=== PATIENT | female | born 1955 | race Caucasian/White ===

== ENCOUNTER 2019-07-21 12:43 | Emergency (ER) | payer SELFPAY ==
--- NOTE | 2019-07-21 12:46 | ED.FEMALEGU ---
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 Patient reports a four-day history of worsening vaginal irritation, reports using intravaginal Monistat without any improvement in her symptoms. She has had white vaginal discharge, patient reports there is some itching in that area as well. Patient has history of vaginitis in the past. Patient reports she is sexually active with one partner, no history of sexual transmitted infections. No vaginal bleeding. Mild dysuria, no hematuria. No fever, chills, nausea, vomiting or diarrhea. Related Data Allergies Allergy/AdvReac Type Severity Reaction Status Date / Time No Known Allergies Allergy Verified 07/21/19 12:50 Review of Systems Review of Systems: Narrative: CONSTITUTIONAL: Denies fever CARDIOVASCULAR: Denies chest pain RESPIRATORY: Denies cough or dyspnea. GASTROINTESTINAL: Denies abdominal pain : Reports vaginal discharge, itching SKIN: Denies rash MUSCULOSKELETAL: Denies back pain NEUROLOGIC: Denies headache PMF Past Medical History Medical History (Updated 07/21/19 @ 13:05 by Rayne Rae MD) Diabetes Fibroid Hypertension Surgical History Surgical History (Updated 07/21/19 @ 12:59 by Rayne Rae MD) H/O tubal ligation H/O: hysterectomy History of tonsillectomy Family History Family History (Updated 06/11/18 @ 10:51 by DOCTOR UNKNOWN) Sibling Patient's brother is in good health Father Family history of emphysema Social History Social History Smoking status: Never smoker Alcohol intake: never Exam Narrative: Exam Narrative: GENERAL: Awake, alert, conversant HEAD: Normocephalic, atraumatic. EYES: PERRLA and EOMI. ENT: Nares clear, no rhinorrhea or epistaxis. Mucous membranes moist. NECK: Supple. CHEST: No respiratory distress, breathing even and non labored HEART: Regular rate, sinus rhythm ABDOMEN:Non distended, non tender : Vaginal introitus is erythematous, white cottage cheeselike discharge, there is external lesions that appear yeastlike with cottage cheese discharge as well, no abscess, labia are mildly edematous, no excoriation EXTREMITIES: Normal range of motion. No edema. SKIN: Warm, dry, no rash. NEURO:No focal deficits. Alert and oriented x3 Course Vital Signs Vital signs: Vital Signs Temperature 36.8 C 07/21/19 12:47 Pulse Rate 99 07/21/19 12:47 Respiratory Rate 15 07/21/19 12:47 Blood Pressure 168/101 H 07/21/19 12:47 Pulse Oximetry 98 07/21/19 12:47 Temperature 36.8 C 07/21/19 12:47 Pulse Rate 99 07/21/19 12:47 Respiratory Rate 15 07/21/19 12:47 Blood Pressure 168/101 H 07/21/19 12:47 Pulse Oximetry 98 07/21/19 12:47 MDM - Female Genitourinary MDM Narrative Medical decision making narrative: Patient presented for evaluation of vaginal irritation. No UTI. On exam, clinical symptoms are most consistent with vulvovaginal candidiasis. Patient will require some systemic antifungal, spoke with on-call BRICK PAVING CHECKER Dr. Yuliana Aguila who recommended Terazol 3 as well as Lotrisone ointment. No sign of abscess, systemic cellulitis, Paco's gangrene. Likely, patient's diabetes is contributing to this. He will follow her up in office. Differential Diagnosis Differential diagnosis: Likely urinary tract infection, bacterial vaginosis, cervicitis, vaginitis and cystitis Medical Records Attestation: I reviewed the patient's medical records. Lab Data Labs: Lab Results 07/21/19 07/21/19 07/21/19 Range/Units 13:11 13:13 13:15 Urine Color Colorless (Yellow) Urine Appearance Clear (Clear) Urine pH 6.0 (5.0-9.0) Ur Specific
[2019-07-21 12:47] VITALS: BP 168/101; PULSE 99; RESP 15; TEMP 36.8; O2SAT 98
[2019-07-21 13:26] LABS: Add Urine Microscopic? YES; Appearance Urine Clear (Clear); Bacteria Urine Trace /hpf; Bilirubin Urine Negative (Negative); Color Urine Colorless (Yellow); Glucose Urine UA 3+ mg/dL (Negative); Ketones Urine Negative (Negative); Leukocyte Esterase Ur 1+ LEU/UL (Negative); Nitrate Urine Negative (Negative); Protein Urine Negative (Negative); RBC Urine 0-2 /hpf (0-2); Specific Grav Ur 1.029 (1.001-1.035); Squamous Epithelial Cell Urine Occasional /hpf (Few); Urobilinogen Urine Negative mg/dL (<2.0)
[2019-07-21 13:34] LABS: Blood Urine Negative (Negative)
[2019-07-21 14:22] VITALS: BP 134/82; PULSE 97; RESP 20; O2SAT 97
== END 2019-07-21 14:25 | disposition home or self-care (01) ==
PROVIDERS: Emergency Provider Emergency Medicine; PCP Internal Medicine
DX: B37.3 Candidiasis of vulva and vagina (principal); E11.9 Type 2 diabetes mellitus without complications; I10 Essential (primary) hypertension
CPT/HCPCS: 81001; 87070; 87077; 87086; 87088; 87491; 87591; 87808; 99284

== ENCOUNTER 2019-08-04 12:28 | Observation (INO) | payer SELFPAY ==
[2019-08-04] VITALS (17 sets, daily range): BP systolic 117–165; BP diastolic 80–112; PULSE 78–117; RESP 14–24; TEMP 36.6–36.9; O2SAT 97–99; BMI 22.8
[2019-08-04 12:37] LABS: Glucose Point of Care > 500 (65-105)
[2019-08-04 12:37] LABS: Glucose Point of Care > 500 (65-105)
[2019-08-04 13:15] LABS: Basophils Percent Auto 0.4 % (0.2-1.2); Eosinophils Percent Auto 0.2 % (0-4.4); Hematocrit 41.1 % (37.0-47.0); Hemoglobin 13.4 g/dL (12.0-15.0); Immature Granulocyte Absolute 0.04 K/mm3 (0.00-0.031); Immature Granulocyte Percent A 0.4 % (0-0.5); Lymphocytes Percent Auto 15.1 % (18.3-44.2); Mean Corpuscular HGB Conc 32.6 g/dl (32-36); Mean Corpuscular Hemoglobin 30.4 pg (26-34); Mean Corpuscular Volume 93.2 fl (80-100); Mean Platelet Volume 10.3 fl (7.4-10.4); Monocytes Absolute Auto 0.6 K/mm3 (0.1-0.6); Monocytes Percent Auto 5.4 % (2.6-8.5); Neutrophils Absolute Auto 8.3 K/mm3 (1.3-6.7); Neutrophils Percent Auto 78.5 % (45.5-73.1); Platelet Count Result 397 k/mm3 (150-375); Red Blood Count 4.41 M/mm3 (4.2-5.4); Red Cell Distribution Width 12.8 % (11.5-14.5); White Blood Count 10.6 K/mm3 (4.5-10.0)
[2019-08-04 13:18] LABS: Add Urine Microscopic? YES; Appearance Urine Clear (Clear); Bacteria Urine Trace /hpf; Bilirubin Urine Negative (Negative); Blood Urine Negative (Negative); Color Urine Colorless (Yellow); Glucose Urine UA 3+ mg/dL (Negative); Ketones Urine Negative (Negative); Leukocyte Esterase Ur 1+ LEU/UL (Negative); Nitrate Urine Negative (Negative); Protein Urine Negative (Negative); Squamous Epithelial Cell Urine Few /hpf (Few); Urobilinogen Urine Negative mg/dL (<2.0)
[2019-08-04 13:37] LABS: Albumin Level 3.7 g/dL (3.5-5.1); Alkaline Phosphatase 384 U/L (38-126); Aspartate Amino Transferase 27 U/L (14-36); Bilirubin,Total 0.3 mg/dL (0.2-1.3); Blood Urea Nitrogen 21 mg/dL (7-17); Calcium 8.7 mg/dL (8.4-10.2); Carbon Dioxide 18 mmol/L (22-30); Chloride 87 mmol/L (98-107); Estimated CRCL calculation 72 ml/min; Estimated Glomerular Filt Rate > 60; Potassium 4.9 mmol/L (3.4-5.0); Sodium 121 mmol/L (137-145)
[2019-08-04 13:48] LABS: Alanine Aminotransferase 38 U/L (4-35)
[2019-08-04 13:56] LABS: Glucose 915 mg/dL (65-105)
--- NOTE | 2019-08-04 13:58 | ECG_ITS ---
Measurements Intervals [place] Rate: 98 P: -3 MD: 141 QRS: -2 QRSD: 84 T: 45 QT: 345 QTc: 442 Interpretive Statements SINUS RHYTHM DELAYED PRECORDIAL R/S TRANSITION BASELINE ARTIFACT- I, II, III, AVR, AVL, AVF, V1 BORDERLINE ECG Electronically Signed On 08-04-2019 18:59:03 CDT by Slim Tan D.O.
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
[2019-08-04] MEDS: SODIUM CHLORIDE 0.9% IV 1,000 ML 999 ML IV CONT ×2 (14:25→15:32)
[2019-08-04] MEDS: INSULIN HUMAN REGULAR (*BKC) 100 UNITS/ML 6 UNITS IV PUSH (14:47)
--- NOTE | 2019-08-04 15:12 | PC.NURSE ---
called lab to add on blood orders
[2019-08-04 15:31] LABS: Alveolar/Arterial O2 Gradient 19.6 mmHg; Base Excess ABG -3.9 mEq/l (+/-2.0); Device ROOM AIR; Fractional Inspired Oxygen 21 %; HCO3 ABG 19.8 mEq/l (22.0-26.0); Modified Allen's Test Pass; Oxygen Content ABG 19.2 %vol (16.0-22.0); Oxygen Saturation ABG 97.2 % (95.0-100.0); Oxyhemoglobin 96.5 % THb (90.0-100.0); PCO2 ABG 32.1 mmHg (35.0-45.0); PO2 ABG 91.7 mmHg (80.0-100.0); PO2 FiO2 Ratio Arterial Blood 4.37 %; Site Drawn RIGHT RADIAL; Total Hemoglobin 14.1 g/dL (12.0-18.0); pH ABG 7.407 (7.350-7.450)
[2019-08-04 15:31] LABS: Beta-Hydroxybutyrate/Acetoacetate 0.19 mmol/L (0.02-0.27)
[2019-08-04 16:25] LABS: Glucose Point of Care 460 (65-105)
--- NOTE | 2019-08-04 17:52 | ADMGEN ---
This patient, Hailey Raphael, was admitted to IMU Room 204-01. Patient/family oriented to hospital policies and general routines including ID bracelet, bed and alarms, visiting hours, pain management, procedures, bathroom and other care routines, personal items, smoking policy, room service/diet, and visiting hours. Valuables list has been completed. Information on how to activate the Rapid Response Team has been discussed. Patient/Family are encouraged to report perceived risks to care and to ask questions if they do not understand what they are told or what they should do.
[2019-08-04 17:59] LABS: Glucose Point of Care 419 (65-105)
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
[2019-08-04 18:58] LABS: Phosphorus 3.3 mg/dL (2.5-4.5)
[2019-08-04 18:59] LABS: Blood Urea Nitrogen 16 mg/dL (7-17); Calcium 8.6 mg/dL (8.4-10.2); Carbon Dioxide 24 mmol/L (22-30); Chloride 98 mmol/L (98-107); Estimated CRCL calculation 85 ml/min; Estimated Glomerular Filt Rate > 60; Glucose 416 mg/dL (65-105); Potassium 4.1 mmol/L (3.4-5.0); Sodium 130 mmol/L (137-145)
[2019-08-04 19:49] LABS: Thyroid Stimulating Hormone Reflex 0.761 uIU/mL (0.465-4.68)
[2019-08-04 20:23] LABS: Glucose Point of Care > 500 (65-105)
[2019-08-04] MEDS: SODIUM CHLORIDE 0.9% IV 1,000 ML 100 ML IV CONT (22:30)
[2019-08-04] MEDS: INSULIN ASPART (*BKC) 100 UNITS/ML 8 UNITS SUB-Q (22:30)
[2019-08-04 23:44] LABS: Glucose Point of Care 315 (65-105)
[2019-08-05] VITALS (7 sets, daily range): BP systolic 125–135; BP diastolic 74–88; PULSE 76–101; RESP 14–20; TEMP 36.6–36.7; O2SAT 98–100
[2019-08-05 08:14] LABS: Glucose Point of Care 275 (65-105)
[2019-08-05] MEDS: INSULIN ASPART (*BKC) 100 UNITS/ML SUB-Q ×2 (08:37→12:36)
[2019-08-05] MEDS: metFORMIN HCL 500 MG TABLET PO ×2 (08:38→11:20)
[2019-08-05 09:03] LABS: Blood Urea Nitrogen 11 mg/dL (7-17); Calcium 8.1 mg/dL (8.4-10.2); Carbon Dioxide 24 mmol/L (22-30); Chloride 98 mmol/L (98-107); Estimated CRCL calculation 85 ml/min; Estimated Glomerular Filt Rate > 60; Glucose 315 mg/dL (65-105); Sodium 129 mmol/L (137-145)
[2019-08-05] MEDS: glipiZIDE 5 MG TABLET PO (11:21)
[2019-08-05 12:40] LABS: Glucose Point of Care 306 (65-105)
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
[2019-08-09 05:52] LABS: GGT 125 U/L (3-65)
[2019-08-10 09:36] LABS: Reference Lab Test Result >14.0%
== END 2019-08-05 13:50 | disposition home or self-care (01) ==
LOC: ANHED 16:09 → ANHIMU 16:42
PROVIDERS: Physician Assistant; Admitting Provider Internal Medicine; Emergency Provider General Practice; PCP Internal Medicine; Visit Provider Internal Medicine
DX: E11.65 Type 2 diabetes mellitus with hyperglycemia (principal); E86.0 Dehydration; E87.1 Hypo-osmolality and hyponatremia; E87.8 Other disorders of electrolyte and fluid balance, not elsewhere classified; R74.8 Abnormal levels of other serum enzymes; I10 Essential (primary) hypertension; V43.52XA Car driver injured in collision with other type car in traffic accident, initial encounter; Z79.84 Long term (current) use of oral hypoglycemic drugs; Z91.14 Patient's other noncompliance with medication regimen
CPT/HCPCS: 36415; 36600; 80048; 80053; 81001; 82010; 82805; 82948; 82977; 83036; 83605; 83735; 84100; 84443; 85025; 87086; 87088; 93005; 96361; 96374; 99285; A9270; G0378; J1815; J7030

== ENCOUNTER 2019-11-11 09:08 | Outpatient (CLI) | payer MEDICARE, SELFPAY ==
[2019-11-11 09:32] LABS: Hemoglobin A1C 7.4 % (<5.7)
[2019-11-11 09:34] LABS: Alanine Aminotransferase 12 U/L (4-35); Albumin Level 4.1 g/dL (3.5-5.1); Alkaline Phosphatase 101 U/L (38-126); Anion Gap 6 mmol/L (8-16); Aspartate Amino Transferase 15 U/L (14-36); Bilirubin,Total 0.5 mg/dL (0.2-1.3); Blood Urea Nitrogen 14 mg/dL (7-17); Calcium 9.8 mg/dL (8.4-10.2); Carbon Dioxide 29 mmol/L (22-30); Chloride 102 mmol/L (98-107); Cholesterol 210 mg/dL (0-200); Estimated Glomerular Filt Rate > 60; Glucose 233 mg/dL (65-105); HDL Direct 32 mg/dL; Potassium 3.8 mmol/L (3.4-5.0); Sodium 137 mmol/L (137-145); Triglycerides 234 mg/dL (<150)
[2019-11-11 09:45] LABS: LDL Cholesterol Direct 145 mg/dL
== END 2019-11-11 09:09 | disposition home or self-care (01) ==
LOC: ANHLAB 09:09
PROVIDERS: PCP Internal Medicine; Visit Provider Nurse Practitioner
DX: E78.49 Other hyperlipidemia (principal); E11.9 Type 2 diabetes mellitus without complications
CPT/HCPCS: 36415; 80053; 80061; 83036

== ENCOUNTER 2020-03-03 15:00 | Outpatient (RCR) | payer MEDICARE, SELFPAY ==
--- NOTE | 2020-01-20 14:51 | PTOPEVAL ---
PHYSICAL THERAPY EVALUATION AND PLAN OF ARE Thank you for referring Hailey Raphael to [facility].? The patient is scheduled to be seen for therapy? 2x/week for 3 weeks. Please review, sign, date and return this plan of care THEODORE. I agree with and certify that the following plan of care is medically necessary. Referring Physician Date Attending Provider: Aureliano Perdomo, DO Evaluation Cardiovascular History Hx Hypertension Yes Reproductive History Hx Section Yes: x2 Hx Hysterectomy Yes Hx Post Menopausal Yes Diagnosis left upper back pain, shoulder Onset September 2019 Subjective Information Hailey is here today for upper Query Text:As Reported By Patient/ left back pain with left Family shoulder pain. She states that it is not getting better and really just staying the same. Takes pain medication that is helpful when she is on them, but the sharp pain comes back when she is not on them. States that it is a sharp pain that is constant. Self Report Pain Assessment Left Scapula Reported Pain Level 8 Pain Description Sharp,Stabbing Pain Frequency Chronic,Continuous Other Pain Aggravating Factors does not note any aggravating factors Interventions Used Interventions Used By Clinicians Exercise Pain Relief Interventions Used By Medication Patient Cervical and Lumbar ROM Cervical ROM Reason Not Measured WFL/Left,WFL/Right Upper Extremity Range of Motion Scapular/ Shoulder Range of Motion Bilateral Shoulder Flexion - Active 135 Shoulder Abduction - Active 135 Shoulder Medial Rotation - Active L1 Query Text:Reach Behind the Back Shoulder Lateral Rotation - Active T1 Query Text:Reach Behind the Head Upper Extremity Muscle Strength Testing Scapular/Shoulder Bilateral Scapular Retraction - Rhomboid 3- Fair - Scapular Retraction - Middle Trapezius 3- Fair - Scapular Retraction - Lower Trapezius 3- Fair - Shoulder Flexion Strength 4+ Good + Shoulder Abduction Strength 4+ Good + Shoulder Medial Rotation Strength 4- Good - Shoulder Lateral Rotation Strength 4+ Good + Muscle Length Testing Muscle Length Testing Latissmus Dorsi Muscle Length (R) Moderate Tightness,(L) Moderate Tightness Upper Trapezius Muscle Length (R) Moderate Tightness,(L) Moderate Tightness Shoulder Internal Rotators Muscle Length (R) Moderate Tightness,(L) Severe Tightness Pectoralis Major Muscle Length
--- NOTE | 2020-02-10 14:13 | PTOPEVAL ---
PHYSICAL THERAPY PLAN OF CARE AND PROGRESS REPORT Thank you for referring Hailey Raphael to [facility].? The patient is scheduled to be seen for therapy? 2x/week for 3 weeks. Please review, sign, date and return this plan of care THEODORE. I agree with and certify that the following plan of care is medically necessary. Referring Physician Date Attending Provider: Aureliano Perdomo, DO Discharge Diagnosis left upper back pain, shoulder Onset September 2019 Subjective Information Hailey reports that pain levels Query Text:As Reported By Patient/ are about the same as they Family have been. She thinks that she might be able to do more functionally than she used to. States she performs HEP 3x/ wk (prescribed to perform HEP 7x/wk); therefore, I encouraged her to perform HEP at least 5x/wk. Self Report Pain Assessment Left Scapula Reported Pain Level 6 Pain Description Sharp,Stabbing Lowest Pain Intensity 6 Greatest Pain Intensity 7 Pain Score Pain Score 6: Self Report Interventions Used Interventions Used By Clinicians Exercise Pain Relief Interventions Used By Medication Patient Upper Extremity Range of Motion Scapular/ Shoulder Range of Motion Bilateral Shoulder Flexion - Active 145 Shoulder Abduction - Active 145 Shoulder Medial Rotation - Active T10 Query Text:Reach Behind the Back Shoulder Lateral Rotation - Active T1 Query Text:Reach Behind the Head Upper Extremity Muscle Strength Testing Scapular/Shoulder Bilateral Scapular Retraction - Rhomboid 3- Fair - Scapular Retraction - Middle Trapezius 3- Fair - Scapular Retraction - Lower Trapezius 3- Fair - Shoulder Flexion Strength 5 Normal Shoulder Abduction Strength 5 Normal Shoulder Medial Rotation Strength 4+ Good + Shoulder Lateral Rotation Strength 5 Normal Posture Sitting Position Posture Evaluation View Lateral Head/C-Spine Posture Forward Head Thoracic Spine Posture Increased Kyphosis Lumbar Spine Posture Flattened Shoulder Posture (L) Rounded,(R) Rounded,(L) Forward,(R) Forward Scapula Posture (L) Protracted,(R) Protracted Additional Posture Comments After discussion of posture and how to perform appropriate posture and why it is important for shoulder and spine health, Hailey states that she has never had a
--- NOTE | 2020-02-17 13:51 | PCPTNOTE ---
Patient no showed for apt this date. Left voicemail for next scheduled apt.
--- NOTE | 2020-03-03 15:26 | PTOPEVAL ---
PHYSICAL THERAPY DISCHARGE NOTE Thank you for referring Hailey Raphael to [facility].? Please review, sign, date and return this plan of care THEODORE. I agree with and certify that the following plan of care is medically necessary. Referring Physician Date Attending Provider: Aureliano Perdomo, DO Discharge Diagnosis left upper back pain, shoulder Onset September 2019 Subjective Information Hailey reports that pain Query Text:As Reported By Patient/ continues in the left shoulder Family . Reports a 3/10 pain today, which is the lowest pain level she has reported since starting therapy 7 weeks ago. Hailey states that when she has pain symptoms they are sharp and that she can have symptoms when sitting at rest or with activity. Self Report Pain Assessment Left Scapula Reported Pain Level 3 Pain Description Sharp,Stabbing Interventions Used Interventions Used By Clinicians Exercise,Heat,Manual Therapy Techniques Pain Relief Interventions Used By Medication Patient Upper Extremity Range of Motion Scapular/ Shoulder Range of Motion Bilateral Shoulder Flexion - Active 150 Shoulder Abduction - Active 155 Shoulder Medial Rotation - Active T9 Query Text:Reach Behind the Back Shoulder Lateral Rotation - Active 75 Shoulder Lateral Rotation - Active T1 Query Text:Reach Behind the Head Upper Extremity Muscle Strength Testing Scapular/Shoulder Bilateral Scapular Retraction - Rhomboid 3 Fair Scapular Retraction - Middle Trapezius 3 Fair Scapular Retraction - Lower Trapezius 3 Fair Shoulder Flexion Strength 5 Normal Shoulder Abduction Strength 5 Normal Shoulder Medial Rotation Strength 5 Normal Shoulder Lateral Rotation Strength 5 Normal Posture Posture Sitting Position Posture Evaluation View Lateral Head/C-Spine Posture Forward Head Thoracic Spine Posture Increased Kyphosis Lumbar Spine Posture Flattened Shoulder Posture (L) Elevated,(R) Elevated Scapula Posture (L) Protracted,(R) Protracted Palpation tender to palpation on left pectoralis minor, bilateral upper trapezius --overall improved tissue quality throughout bilateral shoulders ; right side is more improved compared to left PT Clinical Summary Hailey is a 64 yo female
== END 2020-03-04 08:59 | disposition home or self-care (01) ==
LOC: ANHPT 15:00
PROVIDERS: PCP Internal Medicine; Visit Provider Internal Medicine
DX: M54.9 Dorsalgia, unspecified (principal)
CPT/HCPCS: 97110; 97140; 97161

== ENCOUNTER 2020-05-26 11:48 | Outpatient (CLI) | payer MEDICARE, SELFPAY ==
[2020-05-26 12:33] LABS: Alanine Aminotransferase 16 U/L (4-35); Alkaline Phosphatase 180 U/L (38-126); Anion Gap 8 mmol/L (8-16); Aspartate Amino Transferase 17 U/L (14-36); Bilirubin,Total 0.3 mg/dL (0.2-1.3); Blood Urea Nitrogen 18 mg/dL (7-17); Calcium 9.4 mg/dL (8.4-10.2); Carbon Dioxide 26 mmol/L (22-30); Chloride 101 mmol/L (98-107); Cholesterol 207 mg/dL (0-200); Estimated Glomerular Filt Rate > 60; Glucose 325 mg/dL (65-105); HDL Direct 27 mg/dL; Sodium 135 mmol/L (137-145); Triglycerides 348 mg/dL (<150)
[2020-05-26 12:44] LABS: LDL Cholesterol Direct 135 mg/dL
[2020-05-26 13:01] LABS: Hemoglobin A1C > 14.0 % (<5.7)
[2020-05-26 13:22] LABS: Vitamin D 25 Hydroxy 21.1 ng/mL
[2020-05-26 13:32] LABS: Creatinine Urine 59.5 mg/dL
[2020-05-26 13:56] LABS: Microalbumin Urine Random < 6.0 mg/L (0-16.7)
[2020-05-26 13:57] LABS: MALB Creatinine Ratio < 10.1 mg/g (0-30)
== END 2020-05-26 11:49 | disposition home or self-care (01) ==
PROVIDERS: PCP Internal Medicine; Visit Provider Nurse Practitioner
DX: E55.9 Vitamin D deficiency, unspecified (principal); E11.9 Type 2 diabetes mellitus without complications; E78.5 Hyperlipidemia, unspecified
CPT/HCPCS: 36415; 80053; 80061; 82043; 82306; 83036

== ENCOUNTER 2020-05-30 09:02 | Outpatient (CLI) | payer MEDICARE, SELFPAY ==
[2020-06-02 23:22] LABS: Mitochondrial (M2) Ab (IgG) <=20.0 U (<=20.0)
== END 2020-05-30 09:03 | disposition home or self-care (01) ==
PROVIDERS: PCP Internal Medicine; Visit Provider Nurse Practitioner
DX: R74.8 Abnormal levels of other serum enzymes (principal)
CPT/HCPCS: 36415; 83520

== ENCOUNTER 2020-08-30 11:26 | Outpatient (CLI) | payer MEDICARE, SELFPAY ==
[2020-08-30 12:08] LABS: Alanine Aminotransferase 18 U/L (4-35); Alkaline Phosphatase 117 U/L (38-126); Anion Gap 11 mmol/L (8-16); Aspartate Amino Transferase 18 U/L (14-36); Bilirubin,Total 0.4 mg/dL (0.2-1.3); Blood Urea Nitrogen 15 mg/dL (7-17); Calcium 10.1 mg/dL (8.4-10.2); Carbon Dioxide 24 mmol/L (22-30); Chloride 102 mmol/L (98-107); Estimated Glomerular Filt Rate > 60; Glucose 246 mg/dL (65-105); Potassium 3.9 mmol/L (3.4-5.0); Sodium 137 mmol/L (137-145)
[2020-08-30 12:10] LABS: Hemoglobin A1C 8.4 % (<5.7)
== END 2020-08-30 11:27 | disposition home or self-care (01) ==
LOC: ANHLAB 11:28
PROVIDERS: PCP Internal Medicine; Visit Provider Internal Medicine
DX: E11.9 Type 2 diabetes mellitus without complications (principal)
CPT/HCPCS: 36415; 80053; 83036

== ENCOUNTER 2021-01-19 10:12 | Outpatient (CLI) | payer MEDICARE, SELFPAY ==
[2021-01-19 11:36] LABS: Alanine Aminotransferase 20 U/L (4-35); Albumin Level 4.1 g/dL (3.5-5.1); Alkaline Phosphatase 167 U/L (38-126); Anion Gap 11 mmol/L (8-16); Aspartate Amino Transferase 25 U/L (14-36); Bilirubin,Total 0.6 mg/dL (0.2-1.3); Blood Urea Nitrogen 11 mg/dL (7-17); Calcium 9.2 mg/dL (8.4-10.2); Carbon Dioxide 21 mmol/L (22-30); Chloride 100 mmol/L (98-107); Cholesterol 265 mg/dL (0-200); Estimated Glomerular Filt Rate > 60; Glucose 331 mg/dL (65-110); HDL Direct 21 mg/dL; Potassium 4.4 mmol/L (3.4-5.0); Sodium 132 mmol/L (137-145); Triglycerides 275 mg/dL (<150)
[2021-01-19 11:47] LABS: LDL Cholesterol Direct 198 mg/dL
[2021-01-19 11:48] LABS: Hemoglobin A1C > 14.0 % (<5.7)
[2021-01-19 11:57] LABS: Creatinine Urine 79.4 mg/dL
[2021-01-19 12:01] LABS: MALB Creatinine Ratio 11.1 mg/g (0-30); Microalbumin Urine Random 8.8 mg/L (0-16.7)
[2021-01-19 16:42] LABS: Vitamin D 25 Hydroxy 25.1 ng/mL
== END 2021-01-19 10:13 | disposition home or self-care (01) ==
LOC: ANHLAB 10:17
PROVIDERS: PCP Internal Medicine; Visit Provider Internal Medicine
DX: E11.9 Type 2 diabetes mellitus without complications (principal); I10 Essential (primary) hypertension; E78.5 Hyperlipidemia, unspecified; E55.9 Vitamin D deficiency, unspecified
CPT/HCPCS: 36415; 80053; 80061; 82043; 82306; 83036

== ENCOUNTER 2021-08-12 08:39 | Emergency (ER) | payer OTHER, MEDICARE, SELFPAY ==
--- NOTE | ~2021-08-12 | CT_ITS ---
EXAMINATION: CT lumbar spine wo con DATE: 08/12/2021 10:11 INDICATION: Low back pain TECHNIQUE: Computed tomography (CT) of the lumbar spine was performed without intravenous contrast. T he dose-length product (DLP) was 281.08 mGy-cm. Iterative reconstruction was used. COMPARISON: None FINDINGS: There is no fracture, dislocation, or subluxation. There is moderate loss of intervertebral disc space height at L2-3, L3-4, and L4-5. The vertebral body heights are maintained. Small degenera tive osteophytes project from the anterior endplates of multiple vertebral bodies. There is mild face t osteoarthritis. IMPRESSION: 1. Moderate lumbar spondylosis without acute findings. Reviewed, dictated and finalized at location A.
[2021-08-12 08:43] VITALS: BP 149/89; PULSE 89; RESP 14; TEMP 36.5; O2SAT 99
--- NOTE | 2021-08-12 08:56 | ED.BACK ---
HPI - Back Pain/Injury General Chief Complaint: Back Pain/Injury <Tiffany Tejeda PA-C - Last Filed: 08/12/21 17:16> Stated Complaint: back injury <IMER Humphrey Last Filed: 08/12/21 17:16> Time Seen by Provider: 08/12/21 08:55 <IMER Humphrey Last Filed: 08/12/21 17:16> Source: patient <IMER Humphrey Last Filed: 08/12/21 17:16> Mode of arrival: ambulatory <IMER Humphrey Last Filed: 08/12/21 17:16> Limitations: no limitations <IMER Humphrey Last Filed: 08/12/21 17:16> History of Present Illness HPI Narrative: Patient is a 65-year-old female who presents the ED with report of low back pain. 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 In the process of transferring the resident, she strained her low back and fell backwards, hitting it against a wall. She sustained a small abrasion over her lumbar spine. She complains of pain in her low back since then, which has been worsening over the last couple days. She has been taking Tylenol at home without relief. She has not taken anything for pain today. She states, I need an x-ray. Denies any head injury in the fall, LOC. Denies abdominal pain, fever, chills, nausea, vomiting, bowel or bladder incontinence, saddle anesthesia, weakness in her legs. <IMER Humphrey Last Filed: 08/12/21 17:16> Related Data Allergies/Adverse Reactions: Allergies Allergy/AdvReac Type Severity Reaction Status Date / Time No Known Allergies Allergy Verified 08/12/21 08:49 <IMER Humphrey Last Filed: 08/12/21 17:16> Review of Systems Review of Systems: CONSTITUTIONAL: Denies fever, chills. CARDIOVASCULAR: Denies chest pain. RESPIRATORY: Denies dyspnea. GASTROINTESTINAL: Denies abdominal pain, incontinence, nausea, vomiting. GENITOURINARY: Denies dysuria, incontinence,or hematuria. SKIN: Reports abrasion over lumbar spine. MUSCULOSKELETAL: Reports low back pain. Denies neck pain. NEUROLOGIC: Denies HI, LOC, numbness, tingling, or weakness. <Tiffany Tejeda PA-C - Last Filed: 08/12/21 17:16> All systems reviewed & are unremarkable except as noted in HPI and below <Tiffany Tejeda PA-C - Last Filed: 08/12/21 17:16> [facility] Past Medical History Medical History: Medical History (Updated 08/12/21 @ 09:21 by Tiffany Tejeda PA-C) Essential hypertension Gastroesophageal reflux disease Hemorrhoids Type 2 diabetes mellitus <Tiffany Tejeda PA-C - Last Filed: 08/12/21 17:16> Surgical History Surgical History: Surgical History History of tonsillectomy History of total hysterectomy History of tubal ligation <Tiffany Tejeda PA-C - Last Filed: 08/12/21 17:16> Family History Family History: Family History Sibling Patient's brother is in good health Father Family history of emphysema Mother Hypertension <Tiffany Tejeda PA-C - Last Filed: 08/12/21 17:16> Social History Social History: Social History Social History: The patient lives in [place], [place]. 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 She designates her daughter, Lizzy Carvajal, as her surrogate decision maker and she wishes to be a full code. Smoking status: Never smoker Second hand tobacco smoke exposure: No Alcohol intake: never Sexual Orientation (if Verbalized by the Patient): Straight or Heterosexual Spiritual care concerns: No <Tiffany Tejeda PA-C - Last Filed: 08/12/21 17:16> Exam Narrative: GENERAL: Well appearing, well-nourished, non-toxic, in no acute distress. HEAD: Normocephalic, atraumatic. EYES: PERRL/EOMI, conjunctivae clear bilaterally. NECK: Supple. No adenopathy, no masses. No midline cervica
[2021-08-12] MEDS: KETOROLAC (*BKC) 60 MG/2 ML VIAL IM (09:13)
== END 2021-08-12 10:57 | disposition home or self-care (01) ==
PROVIDERS: Emergency Provider Emergency Medicine; PCP Internal Medicine
DX: S39.012A Strain of muscle, fascia and tendon of lower back, initial encounter (principal); I10 Essential (primary) hypertension; E11.9 Type 2 diabetes mellitus without complications; K21.9 Gastro-esophageal reflux disease without esophagitis; Z79.84 Long term (current) use of oral hypoglycemic drugs; M47.816 Spondylosis without myelopathy or radiculopathy, lumbar region; X50.0XXA Overexertion from strenuous movement or load, initial encounter; Y93.F2 Activity, caregiving, lifting
CPT/HCPCS: 72131; 96372; 99284; J1885

== ENCOUNTER 2021-11-14 10:11 | Emergency (ER) | payer MEDICARE, SELFPAY ==
--- NOTE | 2021-11-14 10:23 | ED.SKABFB ---
HPI - Skin/Abscess/Foreign Bdy General Chief complaint: Skin/Abscess/Foreign Body Stated complaint: rash Source: patient and RN notes reviewed Mode of arrival: ambulatory Limitations: no limitations History of Present Illness HPI narrative: 66-year-old female with a history of diabetes and high cholesterol presents to the [facility] with complaints of a rash. Reports itchy rash to her bilateral feet for a couple of weeks. Has tried putting some type of lotion(Curel) on it without relief Patient is a very poor historian No rash seen on feet. [place] very dry areas noted to the bottom quarter of her legs. Worse on the left medial without signs of cellulitis. Nothing is raised, warm. No fluctuance noted Onset (ago): week(s) (2-3) Related Data Allergies Allergy/AdvReac Type Severity Reaction Status Date / Time No Known Allergies Allergy Verified 11/14/21 10:31 Review of Systems Review of Systems: All systems reviewed & are unremarkable except as noted in HPI and below Constitutional: Constitutional: Reports no additional constitutional complaints, Denies chills and Denies fever(s) Eyes: Eyes: Reports no additional eye complaints ENT: Reports system reviewed and no additional complaints, except as documented Cardiovascular: Cardiovascular: Reports no additional cardiovascular complaints Respiratory: Respiratory: Reports no additional respiratory complaints Gastrointestinal: Gastrointestinal: Reports no additional gastrointestinal complaints Musculoskeletal: Musculoskeletal: Reports no additional musculoskeletal complaints Integumentary/Breasts: Skin/Breast: Reports as per HPI and Reports rash Neurologic: Reports system reviewed and no additional complaints, except as documented Psychiatric: Psychiatric: Reports no additional psychiatric complaints Allergic/Immunologic: Allergic/Immunologic: Reports no additional allergic/immunologic complaints [facility] Past Medical History Medical History (Updated 11/14/21 @ 10:38 by Oriana Willams APRN) Essential hypertension Gastroesophageal reflux disease Hemorrhoids Type 2 diabetes mellitus Surgical History Surgical History History of tonsillectomy History of total hysterectomy History of tubal ligation Family History Family History Sibling Patient's brother is in good health Father Family history of emphysema Mother Hypertension Social History Social History Social History: The patient lives in [place], [place]. 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 She designates her daughter, Lizzy Carvajal, as her surrogate decision maker and she wishes to be a full code. Smoking status: Never smoker Second hand tobacco smoke exposure: No Alcohol intake: never Sexual Orientation (if Verbalized by the Patient): Straight or Heterosexual Spiritual care concerns: No Comments At the time of my signature, I reviewed and agree with the nursing past medical, surgical, social, and family history. There is no relevant family history pertinent to the patient complaint. Exam Const: General: no acute distress, alert, ill appearing chronically and other (unkept) Nutritional Appearance: well nourished Orientation/consciousness: patient oriented x3 Limitations: no limitations Other: Poor historian HENMT: Head: normal to inspection Ears: external ears normal General nose exam: Normal external nose present Eyes: General: appearance normal, both eyes and all related structures Pupils: Equal, round and reactive pupils present Neck: Neck: normal visual inspection, no lymphadenopathy and no meningeal signs Chest: Chest palpation & inspection: normal inspection of the chest Resp: Effort & Inspection: normal respiratory effort and no use of accessory m
[2021-11-14 10:25] VITALS: BP 152/93; PULSE 94; RESP 18; TEMP 36.7; O2SAT 99
== END 2021-11-14 10:48 | disposition home or self-care (01) ==
PROVIDERS: Emergency Provider Nurse Practitioner; PCP Internal Medicine
DX: L50.9 Urticaria, unspecified (principal); I10 Essential (primary) hypertension; K21.9 Gastro-esophageal reflux disease without esophagitis; E11.9 Type 2 diabetes mellitus without complications
CPT/HCPCS: 99213; G0463

== ENCOUNTER 2021-12-11 09:24 | Outpatient (CLI) | payer MEDICARE, SELFPAY ==
[2021-12-11 10:09] LABS: Alanine Aminotransferase 15 U/L (6-35); Albumin Level 3.8 g/dL (3.5-5.1); Alkaline Phosphatase 131 U/L (38-126); Anion Gap 15 mmol/L (8-16); Aspartate Amino Transferase 15 U/L (14-36); Bilirubin,Total 0.6 mg/dL (0.2-1.3); Blood Urea Nitrogen 9 mg/dL (7-17); Calcium 8.8 mg/dL (8.4-10.2); Carbon Dioxide 26 mmol/L (22-30); Chloride 100 mmol/L (98-107); Cholesterol 230 mg/dL (0-200); Estimated Glomerular Filt Rate > 60; Glucose 274 mg/dL (65-110); HDL Direct 28 mg/dL; Potassium 3.8 mmol/L (3.4-5.0); Sodium 141 mmol/L (137-145); Triglycerides 205 mg/dL (<150)
[2021-12-11 10:14] LABS: Creatinine Urine 90.2 mg/dL
[2021-12-11 10:19] LABS: LDL Cholesterol Direct 169 mg/dL
[2021-12-11 10:55] LABS: Vitamin D 25 Hydroxy 15.8 ng/mL
[2021-12-11 11:27] LABS: Hemoglobin A1C > 14.0 % (<5.7)
== END 2021-12-11 09:25 | disposition home or self-care (01) ==
LOC: ANHLAB 09:26
PROVIDERS: PCP Internal Medicine; Visit Provider Internal Medicine
DX: E55.9 Vitamin D deficiency, unspecified (principal); E78.5 Hyperlipidemia, unspecified; I10 Essential (primary) hypertension; E11.65 Type 2 diabetes mellitus with hyperglycemia
CPT/HCPCS: 36415; 80053; 80061; 82043; 82306; 83036

== ENCOUNTER 2022-01-01 06:49 | Emergency (ER) | payer MEDICARE, SELFPAY ==
--- NOTE | ~2022-01-01 | XR_ITS ---
EXAMINATION: XR hip RT 2V w AP pelvis DATE: 01/01/2022 07:29 INDICATION: Right hip pain. Fall. TECHNIQUE: An anteroposterior view of the pelvis and 2 views of right hip were obtained. COMPARISON: None. FINDINGS: There is lumbar dextrocurvature and severe spondylosis. No fracture. There is mild osteoart hritis of the hips. IMPRESSION: 1. Mild osteoarthritis of the hips. Reviewed, dictated and finalized at location A. 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
[2022-01-01 07:14] VITALS: BP 148/96; PULSE 86; RESP 16; TEMP 36.8; O2SAT 99
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
== END 2022-01-01 08:35 | disposition home or self-care (01) ==
PROVIDERS: Emergency Provider Emergency Medicine; PCP Internal Medicine
DX: S70.01XA Contusion of right hip, initial encounter (principal); I10 Essential (primary) hypertension; E11.9 Type 2 diabetes mellitus without complications; K21.9 Gastro-esophageal reflux disease without esophagitis; Z90.710 Acquired absence of both cervix and uterus; M16.0 Bilateral primary osteoarthritis of hip; Z79.84 Long term (current) use of oral hypoglycemic drugs; W03.XXXA Other fall on same level due to collision with another person, initial encounter
CPT/HCPCS: 73502; 99283

== ENCOUNTER 2022-01-02 12:16 | Observation (INO) | payer OTHER, MEDICARE, SELFPAY ==
--- NOTE | ~2022-01-02 | XR_ITS ---
EXAMINATION: XR chest 1V portable INDICATION: Back pain TECHNIQUE: Portable AP chest at 1843 hours COMPARISON: 05/14/2016 FINDINGS: The lungs are free of acute opacities. No pleural effusion or pneumothorax. The cardiomedia stinal silhouette is normal. There is a chronic nodule of the right midlung zone. IMPRESSION: 1. No acute cardiopulmonary abnormality. Reviewed, dictated and finalized at location F. IGERATING TECHNICIAN
--- NOTE | ~2022-01-02 | CT_ITS ---
EXAMINATION: CT pelvis wo con DATE: 01/02/2022 17:43 INDICATION: Right hip and low back pain TECHNIQUE: Computed tomography (CT) of the pelvis was performed without intravenous contrast. The dos e-length product (DLP) was 219.29 mGy-cm. Automated exposure control and iterative reconstruction santos hnique were employed. COMPARISON: None FINDINGS: There is an acute, traumatic, closed, nondisplaced fracture involving the greater trochante r of the right femur. No additional fracture is identified. The femoral heads are well-seated in thei r acetabula. There is severe lumbar spondylosis. IMPRESSION: 1. Acute, nondisplaced fracture of the greater trochanter of the right femur. Reviewed, dictated and finalized at location F. SE COOK
[2022-01-02 12:37] VITALS: BP 135/83; PULSE 107; RESP 18; TEMP 36.4; O2SAT 99
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
--- NOTE | 2022-01-02 18:31 | ECG_ITS ---
Measurements Intervals [place] Rate: 92 P: -7 OR: 142 QRS: -16 QRSD: 85 T: 9 QT: 369 QTc: 459 Interpretive Statements SINUS RHYTHM DELAYED PRECORDIAL R/S TRANSITION BORDERLINE T WAVE ABNORMALITY- INFERIOR LEADS BASELINE ARTIFACT- I, II, III, AVR, AVL, AVF, V1 BORDERLINE ECG COMPARED TO ECG 08/04/2019 15:27:40 NO SIGNIFICANT CHANGES Electronically Signed On 01-02-2022 20:00:40 CERTIFIED TOWER CLIMBER by Slim Tan D.O.
[2022-01-02 18:44] LABS: Basophils Percent Auto 0.3 % (0.2-1.2); Eosinophils Percent Auto 0.2 % (0-4.4); Hemoglobin 13.7 g/dL (12.0-15.0); Immature Granulocyte Absolute 0.02 K/mm3 (0.00-0.031); Immature Granulocyte Percent A 0.2 % (0-0.5); Lymphocytes Absolute Auto 2.75 K/mm3 (0.9-3.2); Lymphocytes Percent Auto 30.4 % (18.3-44.2); Mean Corpuscular HGB Conc 34.3 g/dl (32-36); Mean Corpuscular Hemoglobin 29.9 pg (26-34); Mean Corpuscular Volume 87.3 fl (80-100); Mean Platelet Volume 9.6 fl (7.4-10.4); Monocytes Absolute Auto 0.8 K/mm3 (0.1-0.6); Monocytes Percent Auto 9.2 % (2.6-8.5); Neutrophils Absolute Auto 5.4 K/mm3 (1.3-6.7); Neutrophils Percent Auto 59.7 % (45.5-73.1); Platelet Count Result 314 k/mm3 (150-375); Red Blood Count 4.58 M/mm3 (4.2-5.4); Red Cell Distribution Width 12.6 % (11.5-14.5); White Blood Count 9.1 K/mm3 (4.5-10.0)
[2022-01-02 18:54] LABS: Alanine Aminotransferase 14 U/L (6-35); Albumin Level 3.8 g/dL (3.5-5.1); Alkaline Phosphatase 128 U/L (38-126); Anion Gap 13 mmol/L (8-16); Aspartate Amino Transferase 16 U/L (14-36); Bilirubin,Total 0.6 mg/dL (0.2-1.3); Blood Urea Nitrogen 17 mg/dL (7-17); Calcium 8.6 mg/dL (8.4-10.2); Carbon Dioxide 24 mmol/L (22-30); Chloride 99 mmol/L (98-107); Estimated CRCL calculation 70 ml/min; Estimated Glomerular Filt Rate > 60; Glucose 254 mg/dL (65-110); Potassium 3.7 mmol/L (3.4-5.0); Sodium 136 mmol/L (137-145)
[2022-01-02 18:56] LABS: INR 1.1; Prothrombin Time 13.7 Seconds (11.1-14.7)
[2022-01-02 18:58] LABS: Partial Thromboplastin Time 29.6 SECONDS (22.3-36.8)
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
[2022-01-02 19:55] VITALS: BP 150/94; PULSE 89; RESP 18; O2SAT 95
[2022-01-02 19:58] LABS: Influenza A QL RT-PCR Negative (Negative); Influenza B QL RT-PCR Negative (Negative); SARS-CoV-2 RNA PCR Negative
[2022-01-02 20:18] LABS: CRP 5.9 mg/dL (<1.0)
--- NOTE | 2022-01-02 20:28 | PC.NURSE ---
2025-CALLED REPORT TO NIMISHA ON [facility]
[2022-01-02 20:42] VITALS: BMI 23.1
[2022-01-02 20:45] VITALS: BP 149/93; PULSE 88; RESP 16; TEMP 36.7; O2SAT 98
--- NOTE | 2022-01-02 22:44 | PC.NURSE ---
Patient arrived on 3 Med-Surg unit at 20:45 on 01/02/2022
[2022-01-02 22:45] VITALS: BMI 23.3
[2022-01-02 23:22] LABS: Glucose Point of Care 201 mg/dl (65-105)
[2022-01-03] VITALS: PULSE 88
[2022-01-03] MEDS: SODIUM CHLORIDE 0.9% IV 1,000 ML 100 ML IV CONT ×3 (01:32→22:35)
[2022-01-03] MEDS: MORPHINE SULFATE (*CRX) 2 MG/ML INJ IV PUSH (03:48)
[2022-01-03 04:00] VITALS: PULSE 81
[2022-01-03 06:00] VITALS: BP 143/77; PULSE 87; RESP 16; TEMP 36.2; O2SAT 97
[2022-01-03 06:11] LABS: Basophils Percent Auto 0.5 % (0.2-1.2); Eosinophils Percent Auto 0.6 % (0-4.4); Hematocrit 39.5 % (37.0-47.0); Immature Granulocyte Absolute 0.01 K/mm3 (0.00-0.031); Immature Granulocyte Percent A 0.2 % (0-0.5); Lymphocytes Percent Auto 31.9 % (18.3-44.2); Mean Corpuscular HGB Conc 32.9 g/dl (32-36); Mean Corpuscular Hemoglobin 30.2 pg (26-34); Mean Corpuscular Volume 91.6 fl (80-100); Mean Platelet Volume 10.1 fl (7.4-10.4); Monocytes Absolute Auto 0.7 K/mm3 (0.1-0.6); Monocytes Percent Auto 10.2 % (2.6-8.5); Neutrophils Absolute Auto 3.7 K/mm3 (1.3-6.7); Neutrophils Percent Auto 56.6 % (45.5-73.1); Platelet Count Result 271 k/mm3 (150-375); Red Blood Count 4.31 M/mm3 (4.2-5.4); Red Cell Distribution Width 12.6 % (11.5-14.5); White Blood Count 6.6 K/mm3 (4.5-10.0)
[2022-01-03 06:23] LABS: Alanine Aminotransferase 12 U/L (6-35); Albumin Level 3.3 g/dL (3.5-5.1); Alkaline Phosphatase 101 U/L (38-126); Anion Gap 11 mmol/L (8-16); Aspartate Amino Transferase 17 U/L (14-36); Bilirubin,Total 0.9 mg/dL (0.2-1.3); Blood Urea Nitrogen 14 mg/dL (7-17); Carbon Dioxide 24 mmol/L (22-30); Chloride 101 mmol/L (98-107); Estimated CRCL calculation 70 ml/min; Estimated Glomerular Filt Rate > 60; Glucose 190 mg/dL (65-110); Potassium 3.4 mmol/L (3.4-5.0); Sodium 136 mmol/L (137-145)
--- NOTE | 2022-01-03 07:16 | PCOTNOTE ---
Needs ortho consult/WB status prior to completing OT evaluation.
[2022-01-03 07:54] LABS: Glucose Point of Care 195 mg/dl (65-105)
[2022-01-03] MEDS: FAMOTIDINE 20 MG TABLET PO ×2 (08:32→22:34)
--- NOTE | 2022-01-03 09:15 | PCPTNOTE ---
Needs ortho consult/WB status prior to completing PT evaluation.
--- NOTE | 2022-01-03 11:13 | PCOTNOTE ---
Needs ortho consult/WB status prior to completing OT evaluation. Following.
[2022-01-03 11:35] LABS: Glucose Point of Care 311 mg/dl (65-105)
[2022-01-03] MEDS: INSULIN ASPART (*BKC) 100 UNITS/ML SUB-Q (11:38)
--- NOTE | 2022-01-03 13:52 | PM.IMPN ---
Progress Note: A&P Assessment and Plan (1) Right hip pain: Code(s): M25.551 - Pain in right hip Status: Acute Assessment and Plan: plan is to orthopedic surgeon see the patient. Pain control. DVT prophylaxis (2) Uncontrolled diabetes mellitus: Code(s): E11.65 - Type 2 diabetes mellitus with hyperglycemia Status: Acute Assessment and Plan: = HBA1c ( goal <7.0%) , Renal functions, Liver panel every 3 months Monitor vitamin B12 levels Optimize ERICK-inhibitor and statin Routine glucose monitoring. Watch for Hypoglycemia. BMI goal < 25 will hold glipizide right now continue patient may going. Exercise, Diet ( low salt- low carb) Weight loss (3) Essential (primary) hypertension: Code(s): I10 - Essential (primary) hypertension Status: Acute Assessment and Plan: Keep systolic pressure less than 130/70 diet exercise weight loss salt restriction. (4) Hyperlipidemia, unspecified: Qualifiers: Hyperlipidemia type: unspecified Qualified Code(s): E78.5 - Hyperlipidemia, unspecified Code(s): E78.5 - Hyperlipidemia, unspecified Status: Acute (5) CARRILLO (nonalcoholic steatohepatitis): Code(s): K75.81 - Nonalcoholic steatohepatitis (CARRILLO) Status: Acute Assessment and Plan: patient continue metformin. Diet exercise weight loss Plan DVT prophylaxis. GI prophylaxis. All records reviewed Discussed plan of care with the nursing staff and with the patient in detail. Answered all questions and concerns from the patient. All labs have been reviewed. Code status updated dictation may have been done utilizing a voice recognition system. Attempts have been made to correct errors. However, there may be uncorrected grammatical, spelling, and recognition errors present. Time Spent With Patient Time with patient: 25 - 35 minutes Subjective Date/time seen: 01/03/22 13:52 Interval history: Patient no complaints chest Review of Systems Review of Systems: All systems reviewed & are unremarkable except as noted in HPI and below Exam Narrative: GENERAL: Well appearing, well-nourished, non-toxic, in no acute distress. HEAD: Normocephalic, atraumatic. NECK: Supple. No adenopathy, no masses. RESPIRATORY: Airway patent, respirations nonlabored. Clear to auscultation bilaterally, no rales, rhonchi, wheezing. CARDIOVASCULAR: Regular rate and rhythm without murmurs, rubs, or gallops. Peripheral pulses 2+ and equal bilaterally. ABDOMINAL: Soft, nontender, nondistended, no hepatosplenomegaly. Normoactive BS. MUSCULOSKELETAL: no Epigastric and no hypochondrial tenderness SKIN: Warm, dry, normal color. No rashes. NEURO: A&O X3. Moves all extremities PSYCHIATRIC: Appropriate mood and affect. Normal interaction. Objective Data Vital Signs Vital Signs: Vital Signs - 24 hr 01/02/22 19:55 01/02/22 20:45 01/03/22 01:15 Temperature 36.7 C Pulse Rate 89 88 Respiratory Rate 18 16 Blood Pressure 150/94 H 149/93 H Pulse Oximetry 95 98 Oxygen Delivery Room Air 01/03/22 00:00 01/03/22 04:00 01/03/22 06:00 Temperature 36.2 C L Pulse Rate 88 81 87 Respiratory Rate 16 Blood Pressure 143/77 H Pulse Oximetry 97 Oxygen Delivery 01/03/22 08:25 Temperature Pulse Rate Respiratory Rate Blood Pressure Pulse Oximetry Oxygen Delivery Room Air Intake/Output Intake/Output: Intake & Output 12/31/21 01/01/22 01/02/22 01/03/22 23:59 23:59 23:59 23:59 Intake Total 1340 Output Total 550 Balance 790 Meds/Results Medications: Active Medications Generic Name Dose Route Start Last Admin Trade Name Freq PRN Reason Stop Dose Admin Acetaminophen 650 mg 01/02/22 19:32 Acetaminophen 325 Mg Tablet PO Q4H PRN Mild Pain (1-3) or Fever Hydrocodone Bitart/Acetaminophen 1 tab 01/02/22 19:30 Hydrocodone/Acetaminophen (*Crx) 5-325 Mg Tablet PO Q6H PRN Pain
[2022-01-03 14:00] VITALS: BP 129/80; PULSE 86; RESP 16; TEMP 36.6; O2SAT 98
[2022-01-03 16:38] LABS: Glucose Point of Care 127 mg/dl (65-105)
[2022-01-03] MEDS: MUPIROCIN 2% OINT 22 GM TUBE 1 APPLIC TOPICAL (16:49)
[2022-01-03] MEDS: metFORMIN HCL 500 MG TABLET 1000 MG PO (16:49)
--- NOTE | 2022-01-03 17:21 | PM.CNOR ---
Assessment and Plan Assessment and plan (1) Fracture of greater trochanter of right femur: Qualifiers: Encounter type: initial encounter Fracture type: closed Fracture alignment: nondisplaced Qualified Code(s): S72.114A - Nondisplaced fracture of greater trochanter of right femur, initial encounter for closed fracture Code(s): S72.111A - Displaced fracture of greater trochanter of right femur, initial encounter for closed fracture Status: Acute Assessment and Plan: LIBBY IS HERE FOR EVALUATION OF HER RIGHT HIP PAIN FOLLOWING A FALL. SHE HAS A NON DISPLACED GREATER TROCHANTERIC FRACTURE AND IS COMFORTABLE AT THIS POINT. SHE HAS PAIN WITH AMBULATION. RECOMMEND PT AND WBAT. SHE WILL CONTINUE WITH THE WALKER UNTIL SHE IS COMFORTABLE. SHE MAY TAKE 6 TO 8 WEEKS FOR FRACTURE HEALING. SHE WILL REQUIRE PT AND POSSIBLY SLI;;ED NURSING PLACEMENT SINCE SHE LIVES ON HER OWN. SHE WILL F/U IN THE OFFICE IN 6 WEEKS. History of Present Illness HPI Consult date: 01/03/22 Chief complaint: Fracture of Rt Greater Trochanter,Pain w/ambulatio Narrative: LIBBY IS HERE FOR RIGHT HIP EVALUATION AFTER A FALL YESTERDAY. SHE C/O RIGHT HIP PAIN. SHE DENIES ANY LEFT HIP PAIN OR [place] OTHER EXTREMITY OR NECK OR BACK PAIN. SHE HAS BEEN WALKING BACK AND FORTH TO THE RESTROMM HERE IN THE HOSPITAL AND WEIGHT BEARING TOLERATED. [facility] Past Medical History Medical History (Updated 01/03/22 @ 17:33 by Odell Stuart MD) Essential hypertension Gastroesophageal reflux disease Hemorrhoids Type 2 diabetes mellitus Surgical History Surgical History History of tonsillectomy History of total hysterectomy History of tubal ligation Family History Family History Sibling Patient's brother is in good health Father Family history of emphysema Mother Hypertension Social History Social History Social History: The patient lives in [place], [place]. 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 She designates her daughter, Lizzy Carvajal, as her surrogate decision maker and she wishes to be a full code. Smoking status: Never smoker Second hand tobacco smoke exposure: No Alcohol intake: never Substance use: never Lack of Transportation: No Lack of Food: Never True Current Housing: I Have Housing Concerned About Future Housing: YES Difficulty Paying Gas/Electric Bills: No Difficulty Paying for Meds: No Currently Unemployed: No Education: High School Diploma/GED Difficulty w/ Childcare or Family Care: No Sexual Orientation (if Verbalized by the Patient): Straight or Heterosexual Spiritual care concerns: No Meds Home Medications and Allergies Home Medications Medication Instructions Recorded Confirmed Type polyethylene glycol 3350 17 gram 17 g PO QAM PRN Constipation 30 08/05/19 01/02/22 Rx oral powder packet (Miralax) days omega-3 fatty acids 1,000 mg 1,000 mg PO DAILY #90 caps 05/26/20 01/02/22 Rx capsule (Fish Oil Concentrate) mupirocin 2 % topical ointment 1 applic topical TID #22 grams 11/17/21 01/02/22 Rx atorvastatin 80 mg tablet 80 mg PO .every other day #15 tabs 12/12/21 01/02/22 Rx cholecalciferol (vitamin D3) 50 100 mcg PO DAILY #90 tabs 12/12/21 01/02/22 Rx mcg (2,000 unit) tablet glipizide 5 mg tablet 5 mg PO .COMPLEX #90 tabs 12/12/21 01/02/22 Rx losartan 25 mg tablet 12.5 mg PO DAILY #30 tabs 12/12/21 01/02/22 Rx metformin 1,000 mg tablet 1,000 mg PO BID #180 tabs 12/12/21 01/02/22 Rx naproxen 250 mg tablet 250 mg PO BID PRN pain #10 tabs 01/01/22 01/02/22 Rx Allergies Allergy/AdvReac Type Severity Reaction Status Date / Time No Known Allergies Allergy Verified 01/02/22 22:38 Vital Signs Vital Signs - 24 hr 01/02/22 19:55 01/02/22 20:45 1
[2022-01-03 21:44] VITALS: BP 137/88; PULSE 85; RESP 16; TEMP 36.5; O2SAT 95
[2022-01-03] MEDS: HYDROcodone/acetaminophen (*CRX) 5-325 MG TABLET 1 TAB PO (22:34)
[2022-01-03 23:55] LABS: Glucose Point of Care 153 mg/dl (65-105)
[2022-01-04 06:00] VITALS: BP 165/86; PULSE 76; RESP 14; TEMP 36.2; O2SAT 95
[2022-01-04] MEDS: HYDROcodone/acetaminophen (*CRX) 5-325 MG TABLET 1 TAB PO ×3 (06:45→23:48)
[2022-01-04 07:21] LABS: Basophils Percent Auto 0.3 % (0.2-1.2); Eosinophils Absolute Auto 0.1 K/mm3 (0-0.3); Eosinophils Percent Auto 2.1 % (0-4.4); Hematocrit 35.6 % (37.0-47.0); Hemoglobin 11.8 g/dL (12.0-15.0); Immature Granulocyte Absolute 0.01 K/mm3 (0.00-0.031); Immature Granulocyte Percent A 0.2 % (0-0.5); Lymphocytes Absolute Auto 2.04 K/mm3 (0.9-3.2); Lymphocytes Percent Auto 30.9 % (18.3-44.2); Mean Corpuscular HGB Conc 33.1 g/dl (32-36); Mean Corpuscular Hemoglobin 29.8 pg (26-34); Mean Corpuscular Volume 89.9 fl (80-100); Monocytes Absolute Auto 0.5 K/mm3 (0.1-0.6); Monocytes Percent Auto 7.9 % (2.6-8.5); Neutrophils Absolute Auto 3.9 K/mm3 (1.3-6.7); Neutrophils Percent Auto 58.6 % (45.5-73.1); Platelet Count Result 265 k/mm3 (150-375); Red Blood Count 3.96 M/mm3 (4.2-5.4); Red Cell Distribution Width 12.6 % (11.5-14.5); White Blood Count 6.6 K/mm3 (4.5-10.0)
[2022-01-04 07:34] LABS: Alanine Aminotransferase 12 U/L (6-35); Alkaline Phosphatase 85 U/L (38-126); Anion Gap 11 mmol/L (8-16); Aspartate Amino Transferase 16 U/L (14-36); Bilirubin,Total 0.6 mg/dL (0.2-1.3); Blood Urea Nitrogen 11 mg/dL (7-17); Carbon Dioxide 24 mmol/L (22-30); Chloride 104 mmol/L (98-107); Estimated CRCL calculation 82 ml/min; Estimated Glomerular Filt Rate > 60; Glucose 154 mg/dL (65-110); Potassium 3.4 mmol/L (3.4-5.0); Sodium 139 mmol/L (137-145)
[2022-01-04] MEDS: SODIUM CHLORIDE 0.9% IV 1,000 ML 100 ML IV CONT ×2 (09:31→19:59)
[2022-01-04] MEDS: FAMOTIDINE 20 MG TABLET PO ×2 (09:33→20:34)
[2022-01-04] MEDS: metFORMIN HCL 500 MG TABLET 1000 MG PO ×2 (09:33→17:23)
[2022-01-04] MEDS: CHOLECALCIFEROL 1,000 UNITS TABLET 4000 UNITS PO (09:33)
[2022-01-04] MEDS: OMEGA 3 POLYUNSAT FATTY ACIDS 1 GM CAP PO (09:33)
[2022-01-04] MEDS: LOSARTAN POTASSIUM 12.5 MG TABLET PO (09:34)
[2022-01-04] MEDS: MUPIROCIN 2% OINT 22 GM TUBE 1 APPLIC TOPICAL ×3 (09:35→17:24)
--- NOTE | 2022-01-04 12:49 | PM.IMPN ---
Progress Note: A&P Assessment and Plan (1) Fracture of greater trochanter of right femur: Qualifiers: Encounter type: initial encounter Fracture type: closed Fracture alignment: nondisplaced Qualified Code(s): S72.114A - Nondisplaced fracture of greater trochanter of right femur, initial encounter for closed fracture Code(s): S72.111A - Displaced fracture of greater trochanter of right femur, initial encounter for closed fracture Status: Acute (2) Uncontrolled diabetes mellitus: Code(s): E11.65 - Type 2 diabetes mellitus with hyperglycemia Status: Acute (3) Essential hypertension: Code(s): I10 - Essential (primary) hypertension Status: Acute Plan been refusing home health and nursing visits would like to go to a long-term rehab facility. Will talk to discharge planners DVT prophylaxis. GI prophylaxis. All records reviewed Discussed plan of care with the nursing staff and with the patient in detail. Answered all questions and concerns from the patient. All labs have been reviewed. Code status updated dictation may have been done utilizing a voice recognition system. Attempts have been made to correct errors. However, there may be uncorrected grammatical, spelling, and recognition errors present. Subjective Date/time seen: 01/04/22 12:49 Interval history: patient ambulating well with physical therapy to continue no chest pain or shortness of fever chills Review of Systems Review of Systems: All systems reviewed & are unremarkable except as noted in HPI and below Exam Narrative: GENERAL: Well appearing, well-nourished, non-toxic, in no acute distress. HEAD: Normocephalic, atraumatic. NECK: Supple. No adenopathy, no masses. RESPIRATORY: Airway patent, respirations nonlabored. Clear to auscultation bilaterally, no rales, rhonchi, wheezing. CARDIOVASCULAR: Regular rate and rhythm without murmurs, rubs, or gallops. Peripheral pulses 2+ and equal bilaterally. ABDOMINAL: Soft, nontender, nondistended, no hepatosplenomegaly. Normoactive BS. MUSCULOSKELETAL: no Epigastric and no hypochondrial tenderness SKIN: Warm, dry, normal color. No rashes. NEURO: A&O X3. Moves all extremities PSYCHIATRIC: Appropriate mood and affect. Normal interaction. Objective Data Vital Signs Vital Signs: Vital Signs - 24 hr 01/03/22 14:00 01/03/22 21:44 01/04/22 06:00 Temperature 36.6 C 36.5 C 36.2 C L Pulse Rate 86 85 76 Respiratory Rate 16 16 14 Blood Pressure 129/80 137/88 165/86 H Pulse Oximetry 98 95 95 Oxygen Delivery 01/03/22 22:34 01/04/22 08:00 01/04/22 10:32 Temperature Pulse Rate Respiratory Rate Blood Pressure Pulse Oximetry Oxygen Delivery Room Air Room Air Room Air Intake/Output Intake/Output: Intake & Output 01/01/22 01/02/22 01/03/22 01/04/22 23:59 23:59 23:59 23:59 Intake Total 3370 1980 Output Total 950 800 Balance 2420 1180 Meds/Results Medications: Active Medications Generic Name Dose Route Start Last Admin Trade Name Freq PRN Reason Stop Dose Admin Acetaminophen 650 mg 01/02/22 19:32 Acetaminophen 325 Mg Tablet PO Q4H PRN Mild Pain (1-3) or Fever Hydrocodone Bitart/Acetaminophen 1 tab 01/02/22 19:30 01/04/22 06:45 Hydrocodone/Acetaminophen (*Crx) 5-325 Mg Tablet PO 1 tab Q6H PRN Administration Pain Rated 4-6 Atorvastatin Calcium 80 mg 01/05/22 09:00 Atorvastatin 40 Mg Tablet PO Q48HR ELSY Dextrose 12.5 gm 01/02/22 19:33 Dextrose 50% 25 Gm/50 Ml Syringe IV PUSH PRN PRN Hypoglycemia Protocol Famotidine 20 mg 01/02/22 21:00 01/04/22 09:33 Famotidine 20 Mg Tablet PO 20 mg Q12HR ELSY Administration Fish Oil 1 gm 01/04/22 09:00 01/04/22 09:33 [place] 3 Polyunsat Fatty Acids 1 Gm Cap PO 1 gm DAILY ELSY Administration Glucagon 1 mg 01/02/22 19:33 Glucagon For Inj 1 Mg Vial IM PRN PRN Hypoglycemia
[2022-01-04 14:00] VITALS: BP 150/87; PULSE 90; RESP 20; TEMP 36.3; O2SAT 99
[2022-01-04 20:54] LABS: Glucose Point of Care 141 mg/dl (65-105)
[2022-01-04 22:27] VITALS: BP 172/96; PULSE 74; RESP 16; TEMP 36.6; O2SAT 96
[2022-01-05 06:06] VITALS: BP 177/95; PULSE 75; RESP 16; TEMP 36.6; O2SAT 98
[2022-01-05] MEDS: SODIUM CHLORIDE 0.9% IV 1,000 ML 100 ML IV CONT (06:18)
[2022-01-05 07:56] LABS: Alanine Aminotransferase 11 U/L (6-35); Alkaline Phosphatase 91 U/L (38-126); Anion Gap 13 mmol/L (8-16); Aspartate Amino Transferase 16 U/L (14-36); Bilirubin,Total 0.5 mg/dL (0.2-1.3); Blood Urea Nitrogen 9 mg/dL (7-17); Calcium 8.3 mg/dL (8.4-10.2); Carbon Dioxide 23 mmol/L (22-30); Chloride 105 mmol/L (98-107); Estimated CRCL calculation 70 ml/min; Estimated Glomerular Filt Rate > 60; Glucose 132 mg/dL (65-110); Potassium 3.5 mmol/L (3.4-5.0); Sodium 141 mmol/L (137-145)
[2022-01-05 07:56] LABS: Basophils Percent Auto 0.5 % (0.2-1.2); Eosinophils Absolute Auto 0.2 K/mm3 (0-0.3); Eosinophils Percent Auto 2.9 % (0-4.4); Hematocrit 37.9 % (37.0-47.0); Hemoglobin 12.3 g/dL (12.0-15.0); Immature Granulocyte Absolute 0.01 K/mm3 (0.00-0.031); Immature Granulocyte Percent A 0.2 % (0-0.5); Lymphocytes Absolute Auto 2.24 K/mm3 (0.9-3.2); Lymphocytes Percent Auto 35.6 % (18.3-44.2); Mean Corpuscular HGB Conc 32.5 g/dl (32-36); Mean Corpuscular Hemoglobin 30.1 pg (26-34); Mean Corpuscular Volume 92.9 fl (80-100); Mean Platelet Volume 10.1 fl (7.4-10.4); Monocytes Absolute Auto 0.4 K/mm3 (0.1-0.6); Monocytes Percent Auto 6.4 % (2.6-8.5); Neutrophils Absolute Auto 3.4 K/mm3 (1.3-6.7); Neutrophils Percent Auto 54.4 % (45.5-73.1); Platelet Count Result 283 k/mm3 (150-375); Red Blood Count 4.08 M/mm3 (4.2-5.4); Red Cell Distribution Width 12.8 % (11.5-14.5); White Blood Count 6.3 K/mm3 (4.5-10.0)
[2022-01-05] MEDS: CHOLECALCIFEROL 1,000 UNITS TABLET 4000 UNITS PO (08:34)
[2022-01-05] MEDS: FAMOTIDINE 20 MG TABLET PO (08:35)
[2022-01-05] MEDS: OMEGA 3 POLYUNSAT FATTY ACIDS 1 GM CAP PO (08:35)
[2022-01-05] MEDS: HYDROcodone/acetaminophen (*CRX) 5-325 MG TABLET 1 TAB PO (08:35)
[2022-01-05] MEDS: ATORVASTATIN 40 MG TABLET 80 MG PO (08:35)
[2022-01-05] MEDS: metFORMIN HCL 500 MG TABLET 1000 MG PO (08:35)
[2022-01-05] MEDS: MUPIROCIN 2% OINT 22 GM TUBE 1 APPLIC TOPICAL (08:39)
[2022-01-05 08:59] LABS: Glucose Point of Care 145 mg/dl (65-105)
--- NOTE | 2022-01-05 11:15 | PM.DS ---
DS: Admitting Diagnosis Discharge Date 01/05/22 Admitting Diagnosis Right trochanteric fracture DS: Discharge Diagnosis Discharge Diagnosis (1) Right hip pain: Code(s): M25.551 - Pain in right hip Status: Acute (2) Fracture of greater trochanter of right femur: Qualifiers: Encounter type: initial encounter Fracture type: closed Fracture alignment: nondisplaced Qualified Code(s): S72.114A - Nondisplaced fracture of greater trochanter of right femur, initial encounter for closed fracture Code(s): S72.111A - Displaced fracture of greater trochanter of right femur, initial encounter for closed fracture Status: Acute (3) Uncontrolled diabetes mellitus: Code(s): E11.65 - Type 2 diabetes mellitus with hyperglycemia Status: Acute (4) Essential (primary) hypertension: Code(s): I10 - Essential (primary) hypertension Status: Acute (5) CARRILLO (nonalcoholic steatohepatitis): Code(s): K75.81 - Nonalcoholic steatohepatitis (CARRILLO) Status: Acute DS: Summary Hospital Course Hospital Course: The patient is 66-year-old female who came to the hospital status post fall. Patient was noted to have right trochanteric fracture nondisplaced. Patient has history of diabetes hypertension. Patient did well during the hospital stay patient blood pressure was monitored pain was well controlled patient sugars have been running into 130s and 140s. Patient blood pressure was noted to be slightly high for which losartan has been increased to 25 mg q.day also advised to follow up with her blood pressure but her primary care physician and a chest losartan as recommended by the PCP to control the systolic pressure less than 130. Patient wanted to go to inpatient rehab but does not qualify. So patient will be going home with home health. Spoke to discharge plan in detail DC home with home Status at Discharge Functional status at discharge: uses cane/walker Overall status at discharge: patient is not back to baseline Time Spent with Patient Time attestation: Total time spent providing and/or coordinating discharge services: Exam Narrative: GENERAL: Well appearing, well-nourished, non-toxic, in no acute distress. HEAD: Normocephalic, atraumatic. NECK: Supple. No adenopathy, no masses. RESPIRATORY: Airway patent, respirations nonlabored. Clear to auscultation bilaterally, no rales, rhonchi, wheezing. CARDIOVASCULAR: Regular rate and rhythm without murmurs, rubs, or gallops. Peripheral pulses 2+ and equal bilaterally. ABDOMINAL: Soft, nontender, nondistended, no hepatosplenomegaly. Normoactive BS. MUSCULOSKELETAL: no Epigastric and no hypochondrial tenderness SKIN: Warm, dry, normal color. No rashes. NEURO: A&O X3. Moves all extremities PSYCHIATRIC: Appropriate mood and affect. Normal interaction. DS: Data Data Completed and Pending Labs on day of discharge: Labs from last 24 hours 01/05/22 01/05/22 01/05/22 08:33 06:45 06:44 WBC 6.3 RBC 4.08 L Hgb 12.3 Hct 37.9 MCV 92.9 MCH 30.1 MCHC 32.5 RDW 12.8 Plt Count 283 MPV 10.1 Immature Gran % (Auto) 0.2 Neut % (Auto) 54.4 Lymph % (Auto) 35.6 [place] % (Auto) 6.4 Eos % (Auto) 2.9 Baso % (Auto) 0.5 Lymph # (Auto) 2.24 [place] # (Auto) 0.4 Eos # (Auto) 0.2 Baso # (Auto) 0.0 Abs Immat Gran (auto) 0.01 Absolute Neuts (auto) 3.4 Absolute Nucleated RBC 0.0 Nucleated RBC % 0.0 Sodium 141 Potassium 3.5 Chloride 105 Carbon Dioxide 23 Anion Gap 13 BUN 9 Creatinine 0.60 L Estim Creat Clear Calc 70 Estimated GFR > 60 Glucose 132 H POC Capillary Glucose 145 H Calcium 8.3 L Total Bilirubin 0.5 AST 16 ALT 11 Alkaline Phosphatase 91 Total Protein 6.0 L Albumin 3.0 L 01/04/22 20:50 WBC RBC Hgb Hct MCV MCH MCHC RDW Plt Count MPV Immature Gran % (Auto) Neut % (Auto) Lymph % (Auto)
[2022-01-05] MEDS: LOSARTAN POTASSIUM 12.5 MG TABLET PO (11:34)
[2022-01-05 14:00] VITALS: BP 153/94; PULSE 100; RESP 18; TEMP 37; O2SAT 98
== END 2022-01-05 16:05 | disposition home or self-care (01) ==
LOC: ANHED 16:04 → ANH3MEDSUR 20:10
PROVIDERS: Physician Assistant; Admitting Provider Internal Medicine; Emergency Provider Emergency Medicine; PCP Internal Medicine; Visit Provider Internal Medicine
DX: S72.114A Nondisplaced fracture of greater trochanter of right femur, initial encounter for closed fracture (principal); M97.01XA Periprosthetic fracture around internal prosthetic right hip joint, initial encounter; W03.XXXA Other fall on same level due to collision with another person, initial encounter; Y92.129 Unspecified place in nursing home as the place of occurrence of the external cause; M54.50 Low back pain, unspecified; K75.81 Nonalcoholic steatohepatitis (NASH); Z20.822 Contact with and (suspected) exposure to COVID-19; I10 Essential (primary) hypertension; E78.5 Hyperlipidemia, unspecified; K21.9 Gastro-esophageal reflux disease without esophagitis; E11.65 Type 2 diabetes mellitus with hyperglycemia; Z82.49 Family history of ischemic heart disease and other diseases of the circulatory system; Z79.84 Long term (current) use of oral hypoglycemic drugs; Z79.1 Long term (current) use of non-steroidal anti-inflammatories (NSAID); Z79.899 Other long term (current) drug therapy
CPT/HCPCS: 36415; 71045; 72192; 80053; 82948; 85025; 85610; 85730; 86140; 87636; 93005; 96361; 96374; 97110; 97116; 97161; 97165; 97535; 99285; A9270; G0378; J1815; J2270; J7030

== ENCOUNTER 2022-01-06 11:16 | Emergency (ER) | payer MEDICARE, SELFPAY ==
--- NOTE | ~2022-01-06 | CT_ITS ---
EXAMINATION: CT hip RT wo con DATE: 01/06/2022 13:01 INDICATION: Worsening right hip pain TECHNIQUE: High resolution computed tomography (CT) of the right hip was performed without intravenou s contrast. Additional sagittal and coronal reconstructions were performed. Automated exposure contro l and iterative reconstruction technique were employed. The dose-length product was 163.88 mGy-cm. COMPARISON: CT dated 01/02/2022 FINDINGS: Again seen is a transverse fracture extending across the proximal aspect of the right greater trochan ter. The fracture fragment includes the footplate of the right gluteus medius but not the footplate o f the gluteus minimus tendon which remains distal to the fracture plane. There is increased distracti on lateral side of the fracture where there is up to 1.5 cm separation of the cortices. There is mini mal separation of the medial margin of the fracture. No other fractures identified. Specifically no c ompromise of the weightbearing axis of the right femur. Mild right hip osteoarthritis. Small amount o f enthesopathic ossification at the proximal right hamstring tendons. Bladder and visualized portion of the bowels are normal. The uterus is not identified and has likely been surgically resected. No pa thologically enlarged lymphadenopathy at the right inguinal region or visualized right hemipelvis. IMPRESSION: 1. Increasing distraction of a subacute fracture at the cephalad aspect of the right greater trochant er. Reviewed, dictated and finalized at location A. IFIER OPERATOR IMPRESSION: 1. Increasing distraction of a subacute fracture at the cephalad aspect of the right greater trochanter.
--- NOTE | ~2022-01-06 | XR_ITS ---
EXAMINATION: XR hip RT min 3V w AP pelvis DATE: 01/06/2022 11:50 INDICATION: Right hip pain TECHNIQUE: Anteroposterior view of the pelvis and anteroposterior, frog leg and cross-table lateral v iews of the right hip were obtained. COMPARISON: 09/01/2021 FINDINGS: Interval development of approximately 8 mm proximal distraction of the previous noted likely avulsion fracture involving the right greater trochanter. No other fractures identified. Moderate to severe l eft-sided disc height loss at L4-L4 and right-sided disc height loss at L4-L5. 5 mm right lateral lis thesis L4 on L5. Mild osteoarthritis at the lateral hip and sacroiliac joints. IMPRESSION: 1. Increasing distraction of a recent avulsion fracture involving the cephalad aspect of the right gr eater trochanter. 2. Severe lower lumbar spondylosis. Reviewed, dictated and finalized at location A. AVER OPTICAL FRAMES IMPRESSION: 1. Increasing distraction of a recent avulsion fracture involving the cephalad aspect of the right greater trochanter. 2. Severe lower lumbar spondylosis.
[2022-01-06 11:16] VITALS: BP 172/110; PULSE 98; RESP 15; TEMP 36.7; O2SAT 99
--- NOTE | 2022-01-06 12:08 | ED.GENADULT ---
HPI - General Adult General Chief complaint: Extremity Injury, Lower Stated complaint: hip pain Time Seen by Provider: 01/06/22 11:54 History of Present Illness HPI narrative: 60-year-old female with a known fracture of her greater trochanter of the right hip presented to the emergency department for evaluation of worsening pain. Patient was previously admitted due to the fracture. During her stay in the hospital patient had been evaluated by PT OT and orthopedics. They decided not to do surgery and patient states she had been able to resume most of her normal activities. Patient states that today she was out doing activities when she had onset of worsening right hip pain. Patient denies any new falls or injuries. Patient states she has not been using a walker to ambulate. Related Data Allergies Allergy/AdvReac Type Severity Reaction Status Date / Time No Known Allergies Allergy Verified 01/06/22 11:19 Review of Systems Review of Systems: CONSTITUTIONAL: Denies fever, chills, or sweats. EYES: Denies visual changes, redness, or discharge. ENT: Denies rhinorrhea, congestion, sore throat, or otalgia. CARDIOVASCULAR: Denies chest pain, palpitations, or edema. RESPIRATORY: Denies cough or dyspnea. GASTROINTESTINAL: Denies abdominal pain, nausea, vomiting, or diarrhea. GENITOURINARY: Denies dysuria or hematuria. SKIN: Denies rash or itching. MUSCULOSKELETAL: See HPI NEUROLOGIC: Denies headache, numbness, or weakness. [facility] Past Medical History Medical History (Updated 01/06/22 @ 14:17 by Delbert Saavedra MD) Essential hypertension Gastroesophageal reflux disease Hemorrhoids Type 2 diabetes mellitus Surgical History Surgical History History of tonsillectomy History of total hysterectomy History of tubal ligation Family History Family History Sibling Patient's brother is in good health Father Family history of emphysema Mother Hypertension Social History Social History Social History: The patient lives in [place], [place]. 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 She designates her daughter, Lizzy Carvajal, as her surrogate decision maker and she wishes to be a full code. Smoking status: Never smoker Second hand tobacco smoke exposure: No Alcohol intake: never Substance use: never Lack of Transportation: No Lack of Food: Never True Current Housing: I Have Housing Concerned About Future Housing: YES Difficulty Paying Gas/Electric Bills: No Difficulty Paying for Meds: No Currently Unemployed: No Education: High School Diploma/GED Difficulty w/ Childcare or Family Care: No Sexual Orientation (if Verbalized by the Patient): Straight or Heterosexual Spiritual care concerns: No Exam Narrative: APPEARANCE: Well appearing, no pain, no distress, well-nourished. HEAD: normocephalic, atraumatic. EYES: PERRLA/EOMI, conjunctivae clear. NOSE: Normal no drainage NECK: Supple. No adenopathy, no masses. RESPIRATORY: Airway patent, respirations nonlabored. Clear to auscultation bilaterally, no rales, rhonchi, wheezing. CARDIOVASCULAR: Regular rate and rhythm without murmurs rubs or gallops. ABDOMINAL: Soft, nontender, nondistended, normal bowel sounds MUSCULOSKELETAL: Decreased range of motion of the right hip due to pain. NEURO: Alert. Cranial nerves II through XII intact. Grossly intact SKIN: Warm, dry. Normal Color Course Course Emergency Course: Patient reports she has not been using a walker to ambulate. Patient states she is able to afford a walker but is just not just one yet. Patient's hip was reimaged due to worsening pain. Case was discussed with Dr. hagen and he was still okay with the plan for using a walker to ambulate. Patient was strongly encouraged
[2022-01-06] MEDS: HYDROcodone/acetaminophen (*CRX) 5-325 MG TABLET 1 TAB PO (14:47)
[2022-01-06] MEDS: CYCLOBENZAPRINE HCL 10 MG TABLET PO (14:47)
== END 2022-01-06 14:55 | disposition home or self-care (01) ==
PROVIDERS: Emergency Provider Emergency Medicine; PCP Internal Medicine
DX: S72.111A Displaced fracture of greater trochanter of right femur, initial encounter for closed fracture (principal); I10 Essential (primary) hypertension; K21.9 Gastro-esophageal reflux disease without esophagitis; E11.9 Type 2 diabetes mellitus without complications; Z90.710 Acquired absence of both cervix and uterus; M47.816 Spondylosis without myelopathy or radiculopathy, lumbar region; X58.XXXA Exposure to other specified factors, initial encounter
CPT/HCPCS: 73502; 73700; 99284; A9270

== ENCOUNTER 2022-03-15 08:29 | Outpatient (CLI) | payer MEDICARE, SELFPAY | END 2022-03-15 08:30 | disposition home or self-care (01) | LOC: ANHLAB 08:30 | PROVIDERS: PCP Internal Medicine; Visit Provider Internal Medicine | DX: Z79.899 Other long term (current) drug therapy (principal) | CPT/HCPCS: 36415; 80307 ==

== ENCOUNTER 2022-03-28 10:00 | Outpatient (RCR) | payer OTHER, MEDICARE, SELFPAY ==
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
--- NOTE | 2022-02-09 10:14 | PCPTNOTE ---
Patient canceled this date due to weather.
--- NOTE | 2022-02-23 11:52 | PTOPPROG ---
Assessment and note entered by Jacqui Ng, PT, DPT Evaluation Information Assessment Status Progress Diagnosis R hip fracture Onset 12/25/21 Subjective Information Pt states overall she is doing fine, she states she will feels unstable. Pt reports 60% improvement in overall symptoms. Pt states she was able to walk 2 miles last week without an increase in hip pain. Assessment PT Clinical Summary Hailey presents to therapy today for her progress report following 9 visits of skilled therapy to treat her R hip fracture. Today she demonstrates full active and passive hip ROM this is pain free and equal to the uninvolved side. She is now able to ambulate without an AD with minimal gait deviations, she has increased her 2 min walk distance from 250ft to 410ft. She continues to requires increased time to complete the TUG and 5xSTS, both placing her at an increased risk for falls. She demonstrates to have hip strength that is grossly 4-/5. She is progressing well towards her therapy goals. Continuation of skilled physical therapy services are indicated to further progress towards goals, to improve balance, and to return to baseline mobility. Plan of Care Interventions Check Out for Orthotic/Pr,Gait Training,Hot Pack/ Cold Pack,Manual Therapy,Neuro Re-education, Patient/Caregiver Educati,Therapeutic Activities, Therapeutic Exercise PT Services Indicated Yes Treatment Frequency and 1x/wk for 5 wks Duration These treatments will address the objective and functional deficits as defined above. The patient will be advanced safely and appropriately in order for the patient to progress towards his/her prior level of function. Additional exercises will be introduced and as well as a comprehensive home exercise program upon discharge, if needed, ?to ensure carryover of functional gains achieved in the clinic. This treatment plan has been reviewed and agreement upon by the patient.
--- NOTE | 2022-03-28 10:38 | PTOPDC ---
Assessment and note entered by Jacqui Ng, PT, DPT Evaluation Information Assessment Status Discharge Diagnosis R hip fracture Onset 12/25/21 Subjective Information Pt states she is doing really well. She reports no pain in the last few weeks. She rates over 100% improvement in her overall symptoms She states she feels even stronger than when she fell. Reported Pain Level Pain Score 0: Self Report Assessment PT Clinical Summary Hailey presents to therapy today for her progress report following 13 visits of skilled therapy to treat her R hip fracture that occurred in 2021. Today she demonstrates hip ROM and strength that is equal jaymie. She demonstrates good functional mobility but still has minor deviations during functional squatting including increased knee valgus. Pt has met all of her therapy goals at this time and no longer require skilled therapy services. She will be discharged with instructions to continue her HEP. Plan of Care PT Services Indicated No Treatment Frequency and to be discharged Duration
== END 2022-03-30 10:11 | disposition home or self-care (01) ==
LOC: ANHGOSHPT 10:00
PROVIDERS: PCP Internal Medicine; Visit Provider Internal Medicine
DX: M25.551 Pain in right hip (principal)
CPT/HCPCS: 97110; 97112; 97140; 97161; 97530

== ENCOUNTER 2022-04-12 10:04 | Outpatient (CLI) | payer OTHER, SELFPAY ==
[2022-04-12 16:38] LABS: Hematocrit 43.2 % (37.0-47.0); Hemoglobin 14.1 g/dL (12.0-15.0); Mean Corpuscular HGB Conc 32.6 g/dl (32-36); Mean Corpuscular Hemoglobin 30.7 pg (26-34); Mean Corpuscular Volume 93.9 fl (80-100); Mean Platelet Volume 10.4 fl (7.4-10.4); Platelet Count Result 453 k/mm3 (150-375); Red Cell Distribution Width 13.4 % (11.5-14.5); White Blood Count 6.7 K/mm3 (4.5-10.0)
[2022-04-12 17:56] LABS: Alanine Aminotransferase 14 U/L (6-35); Albumin Level 4.3 g/dL (3.5-5.1); Alkaline Phosphatase 122 U/L (38-126); Anion Gap 6 mmol/L (8-16); Aspartate Amino Transferase 47 U/L (14-36); Bilirubin,Total 0.7 mg/dL (0.2-1.3); Blood Urea Nitrogen 11 mg/dL (7-17); Carbon Dioxide 29 mmol/L (22-30); Chloride 104 mmol/L (98-107); Cholesterol 242 mg/dL (0-200); Estimated Glomerular Filt Rate > 60; Glucose 127 mg/dL (65-110); HDL Direct 26 mg/dL; Potassium 3.5 mmol/L (3.4-5.0); Sodium 139 mmol/L (137-145); Triglycerides 175 mg/dL (<150)
[2022-04-12 18:08] LABS: Creatinine Urine 103.6 mg/dL; LDL Cholesterol Direct 165 mg/dL
[2022-04-12 18:12] LABS: MALB Creatinine Ratio 10.6 mg/g (0-30)
[2022-04-12 19:58] LABS: Free T4 Free Thyroxine 1.84 ng/mL (0.78-2.19); Vitamin D 25 Hydroxy 14.4 ng/mL
[2022-04-12 23:09] LABS: Hemoglobin A1C 6.7 % (<5.7)
[2022-04-15 04:01] LABS: C-Peptide 1.77 ng/mL (0.80-3.85)
== END 2022-04-12 10:05 | disposition home or self-care (01) ==
LOC: ANHWCLAB 10:16
PROVIDERS: PCP Internal Medicine; Visit Provider Nurse Practitioner Family
DX: K75.81 Nonalcoholic steatohepatitis (NASH) (principal); I10 Essential (primary) hypertension; E78.5 Hyperlipidemia, unspecified; E55.9 Vitamin D deficiency, unspecified; E11.9 Type 2 diabetes mellitus without complications
CPT/HCPCS: 36415; 80053; 80061; 82043; 82306; 82607; 83036; 84439; 84443; 84681; 85027

== ENCOUNTER 2022-06-18 10:55 | Outpatient (CLI) | payer MEDICARE, SELFPAY ==
--- NOTE | ~2022-06-18 | XR_ITS ---
Lumbosacral Spine: AP and lateral views Clinical History: Pain Findings: There is 18 degree dextroscoliosis of the lumbar spine. There is moderate degenerative disc narrowing at L3-L4 L4-5, mild degenerative disc narrowing at remaining lumbar levels. There is facet arthropathy throughout the lumbar spine, worst from L3 through S1. No fracture or subluxation eviden t. The sacroiliac joints are normally outlined. Impression: 18 degree dextroscoliosis. Moderate degenerative spondylitic changes, as above. Reviewed, dictated and finalized at location M. Impression: 18 degree dextroscoliosis. Moderate degenerative spondylitic changes, as above.
--- NOTE | ~2022-06-18 | XR_ITS ---
Left Shoulder Technique: AP and axillary views were obtained. Clinical History: Pain Findings: No fracture or dislocation is seen. Osseous alignment is anatomic. The glenohumeral and acr omioclavicular joint spaces are preserved. Soft tissues are unremarkable. Impression: Unremarkable left shoulder radiographs. Reviewed, dictated and finalized at [facility]. Impression: Unremarkable left shoulder radiographs.
--- NOTE | ~2022-06-18 | XR_ITS ---
Right Shoulder Technique: AP and axillary views were obtained. Clinical History: Pain Findings: No fracture or dislocation is seen. Osseous alignment is anatomic. The glenohumeral and acr omioclavicular joint spaces are preserved. Soft tissues are unremarkable. Impression: Unremarkable right shoulder radiographs. Reviewed, dictated and finalized at [facility]. Impression: Unremarkable right shoulder radiographs.
--- NOTE | ~2022-06-18 | XR_ITS ---
EXAMINATION: XR cervical spine 4-5V DATE: 06/18/2022 11:35 INDICATION: Radiculopathy, site unspecified. TECHNIQUE: 4 views of cervical spine were obtained. COMPARISON: None. FINDINGS: There is 6 degrees levocurvature of cervical spine. There is mild kyphosis of cervical spin e. Vertebral body heights are normal. There is severely decreased disc height from C4-C5 through C6-C 7. There is multilevel mild to moderate facet joint osteoarthritis. There is multilevel uncovertebral joint osteoarthritis, severe bilaterally from C4-C5 through C6-C7. There is mild central canal steno sis at C4-C5, C5-C6, and C6-C7. No prevertebral soft tissue swelling. IMPRESSION: 1. Severe cervical spondylosis. Reviewed, dictated and finalized at location A.
== END 2022-06-18 10:56 | disposition home or self-care (01) ==
LOC: ANHIMG 11:06
PROVIDERS: PCP Nurse Practitioner; Visit Provider Nurse Practitioner Family
DX: M25.519 Pain in unspecified shoulder (principal); M47.892 Other spondylosis, cervical region; M47.897 Other spondylosis, lumbosacral region
CPT/HCPCS: 72050; 72110; 73030

== ENCOUNTER 2022-08-18 15:21 | Emergency (ER) | payer MEDICARE, SELFPAY ==
[2022-08-18 15:35] VITALS: BP 181/105; PULSE 101; RESP 16; TEMP 36.9; O2SAT 98
--- NOTE | 2022-08-18 16:43 | ED.FALL ---
HPI - Fall General Chief Complaint: Wound/Laceration Stated Complaint: ForeHead Injury Due To Fall Time Seen by Provider: 08/18/22 15:30 Source: patient Mode of arrival: ambulatory Limitations: no limitations History of Present Illness HPI Narrative: Hailey is a 66-year-old female patient presenting to the clinic today with complaints of a ground level fall. She reports that she fell on the sidewalk and landed on some gravel. Has a laceration /contusion to the mid forehead, abrasions to her nose, and a laceration to the left knee. She denies any loss of consciousness. Is c/o having a frontal headache. She denies any dizziness, visual changes, chest pain, shortness of breath, or neck pain. Does not recall how she fell. Related Data Allergies Allergy/AdvReac Type Severity Reaction Status Date / Time No Known Allergies Allergy Verified 08/18/22 15:33 Review of Systems Review of Systems: Pertinent positives per HPI. Patient denies any fever, chills, rash, headache, visual changes, dizziness, cough, runny nose, sore throat, shortness of breath, chest pain, palpitations, nausea, vomiting, diarrhea, constipation, abdominal pain, or any urinary issues. [facility] Past Medical History Medical History Essential hypertension Fracture of greater trochanter of right femur Gastroesophageal reflux disease Hemorrhoids Hip fracture, intertrochanteric Hyperlipidemia, unspecified Hyponatremia CARRILLO (nonalcoholic steatohepatitis) Neuropathy Post-menopausal Rosacea, unspecified Type 2 diabetes mellitus Vitamin B12 deficiency Vitamin D deficiency Surgical History Surgical History History of tonsillectomy History of total hysterectomy History of tubal ligation Family History Family History Sibling Patient's brother is in good health Father Family history of emphysema Mother Hypertension Social History Social History Social History: The patient lives in [place], [place]. 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 She designates her daughter, Lizzy Carvajal, as her surrogate decision maker and she wishes to be a full code. 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 There is no relevant family history pertinent to the patient complaint. Exam Narrative: General: Well-developed, well nourished, in no apparent distress Head: Normocephalic, laceration measuring 1 cm to the mid forehead-gaping with contusion/hematoma, tenderness to palpation over this area Eyes: Pupils equally round and reactive to light bilaterally, EOM intact, sclera and conjunctive clear, no discharge, lids normal Ears: TMs intact and clear, ear canals clear, no drainage, grossly hearing normal. Nose: Nares patent, no discharge, no inflammation, no sinus tenderness. Abrasion across the nasal bridge, tenderness to palpation Mouth: Oropharynx without lesions or masses,
== END 2022-08-18 16:05 | disposition short-term general hospital (02) ==
PROVIDERS: Emergency Provider Nurse Practitioner Family; PCP Nurse Practitioner
DX: S06.9X9A Unspecified intracranial injury with loss of consciousness of unspecified duration, initial encounter (principal); S01.81XA Laceration without foreign body of other part of head, initial encounter; S81.012A Laceration without foreign body, left knee, initial encounter; W18.30XA Fall on same level, unspecified, initial encounter; I10 Essential (primary) hypertension; K21.9 Gastro-esophageal reflux disease without esophagitis; E78.5 Hyperlipidemia, unspecified; K75.81 Nonalcoholic steatohepatitis (NASH); E11.40 Type 2 diabetes mellitus with diabetic neuropathy, unspecified; E55.9 Vitamin D deficiency, unspecified
CPT/HCPCS: 99212; G0463

== ENCOUNTER 2022-08-18 17:32 | Emergency (ER) | payer MEDICARE, SELFPAY ==
--- NOTE | ~2022-08-18 | CT_ITS ---
EXAMINATION: CT cervical spine wo con DATE: 08/18/2022 19:58 INDICATION: Neck pain post fall with head injury TECHNIQUE: Computed tomography (CT) of the cervical spine was performed without intravenous contrast. Automated exposure control and iterative reconstruction technique were employed. The dose-length pro duct was 227.02 mGy-cm. COMPARISON: None FINDINGS: Mild cervical dextrocurvature. Straightening of the normal cervical lordosis. Vertebral body heights are normal. No fracture. Multilevel moderate to severe disc height loss from C4-C5 through T2-T3. The re are posterior disc osteophyte complexes at each of these levels with the exception of C7-T1 which contributes to mild to moderate central canal stenosis at C4-C5 through C6-C7 and mild at T1-T2 and T 2-T3. Severe facet osteoarthritis on the right at C2-C3 and C3-C4 with additional mild to moderate fa cet osteoarthritis bilaterally throughout the remainder of the cervical spine. This along with severe uncovertebral osteoarthritis bilaterally at C5-C6 through C6-C7 contributes to moderate neural nara inal stenosis on the right at C2-C3 through C5-C6 and on the left at C4-C5 through C6-C7. There is al so moderate bilateral neural from stenosis at T1-T2 and T2-T3. Mild stenosis at the remaining levels. Multinodular goiter. Small amount of atherosclerotic calcific location at the right carotid bulb. Ce rvical soft tissues are otherwise unremarkable. Visualized apices of lungs are clear. IMPRESSION: 1. Moderate to severe cervical spondylosis. No acute osseous abnormality. 2. Multinodular goiter. Consider thyroid ultrasound for risk stratification. Reviewed, dictated and finalized at location A.
--- NOTE | ~2022-08-18 | CT_ITS ---
EXAMINATION: CT brain wo con DATE: 08/18/2022 19:58 INDICATION: Fall with head injury TECHNIQUE: Computed tomography (CT) of the head was performed without intravenous contrast. Sagittal and coronal reconstructions were performed. The mA was adjusted according to patient size. Iterative reconstruction technique was employed. The dose-length product was 605.33 mGy-cm. COMPARISON: None FINDINGS: Soft tissue swelling and subcutaneous hematoma at the forehead extending to the bridge of the nose. I n the region of soft tissues welling is a small amount of subcutaneous gas suggesting associated lace ration. There is also calcified nodule in the subcutaneous tissues at the forehead. No fracture. No a cute intracranial hemorrhage, acute infarction or abnormal extra axial fluid collection. There is ext ensive scattered white matter hypoattenuation consistent with chronic small vessel ischemic disease. Symmetric prominence of the sulci consistent with mild age-appropriate diffuse cerebral volume loss. Ventricles are normal and symmetric. No mass/mass effect. The orbits, paranasal sinuses and mastoid a ir cells are normal. IMPRESSION: 1. No fracture or acute intracranial process. 2. Degenerative changes including mild diffuse volume loss and extensive nonspecific scattered white matter hypoattenuation consistent with chronic small vessel ischemic disease. Reviewed, dictated and finalized at location A. IMPRESSION: 1. No fracture or acute intracranial process. 2. Degenerative changes including mild diffuse volume loss and extensive nonspe cific scattered white matter hypoattenuation consistent with chronic small vess el ischemic disease.
[2022-08-18 17:34] VITALS: BP 178/102; PULSE 100; RESP 16; TEMP 36.5; O2SAT 99
[2022-08-18] MEDS: TETANUS,DIPHTHERIA,AC PERTUSSIS ADULT (0.5 ML) BOOSTRIX IM (20:03)
[2022-08-18] MEDS: ACETAMINOPHEN 500 MG TABLET 1000 MG PO (20:03)
[2022-08-18] MEDS: LIDO 1%/EPINEPHRINE 1:100,000 20 ML VIAL 10 ML INFILTRATE (20:34)
--- NOTE | 2022-08-18 20:40 | ED.GENADULT ---
HPI - General Adult General Chief complaint: Fall Stated complaint: fall with facial wounds - denies LOC - on thinners Time Seen by Provider: 08/18/22 18:56 History of Present Illness HPI narrative: This 66-year-old female sent from the Urgent Care after she had a fall earlier today. She tripped on some gravel and landed face 1st on the ground. She denies loss of conscious. She denies use of blood thinners. She was seen in urgent care they recommended she come to the hospital for a CT. She has no numbness tingling weakness. The trip was purely mechanical and she has no other medical complaints. Unknown last tetanus. Related Data Allergies Allergy/AdvReac Type Severity Reaction Status Date / Time No Known Allergies Allergy Verified 08/18/22 17:32 [facility] Past Medical History Medical History Essential hypertension Fracture of greater trochanter of right femur Gastroesophageal reflux disease Hemorrhoids Hip fracture, intertrochanteric Hyperlipidemia, unspecified Hyponatremia CARRILLO (nonalcoholic steatohepatitis) Neuropathy Post-menopausal Rosacea, unspecified Type 2 diabetes mellitus Vitamin B12 deficiency Vitamin D deficiency Surgical History Surgical History History of tonsillectomy History of total hysterectomy History of tubal ligation Family History Family History Sibling Patient's brother is in good health Father Family history of emphysema Mother Hypertension Social History Social History Social History: The patient lives in [place], [place]. 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 She designates her daughter, Lizzy Carvajal, as her surrogate decision maker and she wishes to be a full code. 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 Head: Superficial abrasions over the forehead and bridge of the nose. 1 cm laceration over the forehead with gravel in it. EYES: EOMI, 3 mm equal and reactive NOSE: Atraumatic NECK: Trachea midline RESPIRATORY: No increased rate of breathing , clear to auscultation CARDIOVASCULAR: RRR, ABDOMINAL: Non-distended MUSCULOSKELETAl: No obvious deformities NEURO: Alert. Cranial nerves 2-12 grossly intact. Sensation light touch, motor function cerebellar function intact for 4 extremities. Gait exam was normal. SKIN:: Warm, dry. Normal color PSYCHIATRIC: Normal affect Course Vital Signs Vital signs: Vital Signs Temperature 97.7 F 08/18/22 17:34 Pulse Rate 100 08/18/22 17:34 Respiratory Rate 16 08/18/22 17:34 Blood Pressure 178/102 H 08/18/22 17:34 Pulse Oximetry 99 08/18/22 17:34 Oxygen Delivery Room Air 08/18/22 17:34 Temperature 97.7 F 08/18/22 17:34 Pulse Rate 100 08/18/22 17:34 Respiratory Rate 16 08/18/22 17:34 Blood Pressure 178/102 H 08/18/22 17:34 Pulse Oximetry 99 08/18/22 17:34 Oxygen Delivery Room Air 08/18/22 17:34 Procedures Laceration Laceration 1: Date: 08/18/22 Site: face Size (cm)
[2022-08-18 21:26] VITALS: BP 183/102; PULSE 104; RESP 16; O2SAT 100
== END 2022-08-18 21:28 | disposition home or self-care (01) ==
PROVIDERS: Emergency Provider Emergency Medicine; PCP Nurse Practitioner
DX: S01.81XA Laceration without foreign body of other part of head, initial encounter (principal); S81.012A Laceration without foreign body, left knee, initial encounter; S00.31XA Abrasion of nose, initial encounter; Z23 Encounter for immunization; I10 Essential (primary) hypertension; E78.5 Hyperlipidemia, unspecified; E11.40 Type 2 diabetes mellitus with diabetic neuropathy, unspecified; E53.8 Deficiency of other specified B group vitamins; E55.9 Vitamin D deficiency, unspecified; K75.81 Nonalcoholic steatohepatitis (NASH); K21.9 Gastro-esophageal reflux disease without esophagitis; Z90.710 Acquired absence of both cervix and uterus; Z79.84 Long term (current) use of oral hypoglycemic drugs; M47.812 Spondylosis without myelopathy or radiculopathy, cervical region; E04.2 Nontoxic multinodular goiter; W01.0XXA Fall on same level from slipping, tripping and stumbling without subsequent striking against object, initial encounter
CPT/HCPCS: 12001; 12011; 70450; 72125; 90471; 90715; 99284; A9270

== ENCOUNTER 2022-09-25 08:35 | Outpatient (CLI) | payer MEDICARE, SELFPAY ==
[2022-09-25 09:11] LABS: Basophils Percent Auto 0.4 % (0.2-1.2); Eosinophils Absolute Auto 0.1 K/mm3 (0-0.3); Hematocrit 40.8 % (37.0-47.0); Hemoglobin 13.3 g/dL (12.0-15.0); Immature Granulocyte Absolute 0.11 K/mm3 (0.00-0.031); Immature Granulocyte Percent A 1.4 % (0-0.5); Lymphocytes Absolute Auto 2.29 K/mm3 (0.9-3.2); Lymphocytes Percent Auto 29.3 % (18.3-44.2); Mean Corpuscular HGB Conc 32.6 g/dl (32-36); Mean Corpuscular Hemoglobin 30.1 pg (26-34); Mean Corpuscular Volume 92.3 fl (80-100); Mean Platelet Volume 10.1 fl (7.4-10.4); Monocytes Absolute Auto 0.5 K/mm3 (0.1-0.6); Neutrophils Absolute Auto 4.8 K/mm3 (1.3-6.7); Neutrophils Percent Auto 61.9 % (45.5-73.1); Platelet Count Result 371 k/mm3 (150-375); Red Blood Count 4.42 M/mm3 (4.2-5.4); Red Cell Distribution Width 12.7 % (11.5-14.5); White Blood Count 7.8 K/mm3 (4.5-10.0)
[2022-09-25 09:22] LABS: Anion Gap 8 mmol/L (8-16); Blood Urea Nitrogen 18 mg/dL (7-17); Calcium 9.3 mg/dL (8.4-10.2); Carbon Dioxide 26 mmol/L (22-30); Chloride 103 mmol/L (98-107); Cholesterol 249 mg/dL (0-200); Estimated Glomerular Filt Rate > 60; Glucose 193 mg/dL (65-110); HDL Direct 25 mg/dL; Potassium 4.2 mmol/L (3.4-5.0); Sodium 137 mmol/L (137-145); Triglycerides 331 mg/dL (<150)
[2022-09-25 09:23] LABS: Alanine Aminotransferase 14 U/L (6-35); Albumin Level 3.8 g/dL (3.5-5.1); Alkaline Phosphatase 121 U/L (38-126); Anion Gap 6 mmol/L (8-16); Aspartate Amino Transferase 16 U/L (14-36); Bilirubin,Total 0.4 mg/dL (0.2-1.3); Blood Urea Nitrogen 18 mg/dL (7-17); Calcium 9.4 mg/dL (8.4-10.2); Carbon Dioxide 27 mmol/L (22-30); Chloride 103 mmol/L (98-107); Estimated Glomerular Filt Rate > 60; Glucose 193 mg/dL (65-110); Potassium 4.2 mmol/L (3.4-5.0); Sodium 136 mmol/L (137-145)
[2022-09-25 09:33] LABS: LDL Cholesterol Direct 156 mg/dL
[2022-09-25 09:49] LABS: Vitamin D 25 Hydroxy 25.7 ng/mL
== END 2022-09-25 08:36 | disposition home or self-care (01) ==
PROVIDERS: Internal Medicine; PCP Nurse Practitioner Family; Visit Provider Nurse Practitioner Family
DX: E55.9 Vitamin D deficiency, unspecified (principal); E78.49 Other hyperlipidemia; K75.81 Nonalcoholic steatohepatitis (NASH); E53.8 Deficiency of other specified B group vitamins; I10 Essential (primary) hypertension; E78.5 Hyperlipidemia, unspecified; E11.65 Type 2 diabetes mellitus with hyperglycemia
CPT/HCPCS: 36415; 80048; 80053; 80061; 82306; 82607; 85025

== ENCOUNTER 2022-10-16 15:30 | Outpatient (CLI) | payer MEDICARE, SELFPAY ==
--- NOTE | ~2022-10-16 | XR_ITS ---
XR hip LT min 2V DATE: 10/16/2022 15:48 INDICATION: Left hip pain TECHNIQUE: AP and lateral views of left hip COMPARISON: None FINDINGS: There is osteopenia. No fracture or dislocation, avascular necrosis or bone destruction of the left hip is detected. Left hip joint space appears relatively preserved. IMPRESSION: Osteopenia; otherwise negative Reviewed, dictated and finalized at location L.
== END 2022-10-16 15:31 | disposition home or self-care (01) ==
LOC: ANHIMG 15:32
PROVIDERS: PCP Family Medicine; Visit Provider Nurse Practitioner Family
DX: M85.88 Other specified disorders of bone density and structure, other site (principal); Z87.81 Personal history of (healed) traumatic fracture
CPT/HCPCS: 73502

== ENCOUNTER 2022-10-20 10:04 | Emergency (ER) | payer MEDICARE, SELFPAY ==
[2022-10-20] VITALS (12 sets, daily range): BP systolic 156–214; BP diastolic 84–114; PULSE 78–96; RESP 13–23; TEMP 36.7; O2SAT 97–100
[2022-10-20 10:43] LABS: Basophils Percent Auto 0.4 % (0.2-1.2); Eosinophils Absolute Auto 0.1 K/mm3 (0-0.3); Eosinophils Percent Auto 1.4 % (0-4.4); Hematocrit 40.8 % (37.0-47.0); Hemoglobin 13.5 g/dL (12.0-15.0); Immature Granulocyte Absolute 0.02 K/mm3 (0.00-0.031); Immature Granulocyte Percent A 0.4 % (0-0.5); Lymphocytes Absolute Auto 1.52 K/mm3 (0.9-3.2); Lymphocytes Percent Auto 27.3 % (18.3-44.2); Mean Corpuscular HGB Conc 33.1 g/dl (32-36); Mean Corpuscular Hemoglobin 30.1 pg (26-34); Mean Corpuscular Volume 90.9 fl (80-100); Monocytes Absolute Auto 0.3 K/mm3 (0.1-0.6); Monocytes Percent Auto 5.9 % (2.6-8.5); Neutrophils Absolute Auto 3.6 K/mm3 (1.3-6.7); Neutrophils Percent Auto 64.6 % (45.5-73.1); Platelet Count Result 348 k/mm3 (150-375); Red Blood Count 4.49 M/mm3 (4.2-5.4); White Blood Count 5.6 K/mm3 (4.5-10.0)
[2022-10-20 10:52] LABS: Appearance Urine Clear (Clear); Bilirubin Urine Negative (Negative); Blood Urine Negative (Negative); Color Urine Yellow (Yellow); Glucose Urine UA 2+ mg/dL (Negative); Ketones Urine Negative (Negative); Leukocyte Esterase Ur Negative LEU/UL (Negative); Nitrate Urine Negative (Negative); Protein Urine Negative (Negative); Specific Grav Ur 1.016 (1.001-1.035)
[2022-10-20 10:53] LABS: Alanine Aminotransferase 14 U/L (6-35); Alkaline Phosphatase 124 U/L (38-126); Anion Gap 8 mmol/L (8-16); Aspartate Amino Transferase 27 U/L (14-36); Bilirubin,Total 0.5 mg/dL (0.2-1.3); Blood Urea Nitrogen 11 mg/dL (7-17); Calcium 9.2 mg/dL (8.4-10.2); Carbon Dioxide 28 mmol/L (22-30); Chloride 101 mmol/L (98-107); Estimated CRCL calculation 69 ml/min; Estimated Glomerular Filt Rate > 60; Glucose 234 mg/dL (65-110); Potassium 3.7 mmol/L (3.4-5.0); Sodium 137 mmol/L (137-145)
--- NOTE | 2022-10-20 10:55 | ED.GENADULT ---
HPI - General Adult General Chief complaint: Psychiatric Symptoms <Armond Lugo PA-C - Last Filed: 10/20/22 18:41> Stated complaint: I'm here because I'm feeling suicidal <Armond Lugo PA-C - Last Filed: 10/20/22 18:41> Time Seen by Provider: 10/20/22 10:14 <Armond Lugo PA-C - Last Filed: 10/20/22 18:41> Source: patient <IMER Sequeira Last Filed: 10/20/22 18:41> Mode of arrival: ambulatory <IMER Sequeira Last Filed: 10/20/22 18:41> Limitations: no limitations <Armond Lugo PA-C - Last Filed: 10/20/22 18:41> History of Present Illness HPI narrative: This is a 67-year-old female with PMH of HTN, CARRILLO, T2DM who presents to the ED with chief complaint of suicidal ideation for the past 3 days. She states that she was evicted 3 weeks ago and has been living in the [place] [id number]. She states this is the primary reason for her feeling down, depressed and hopeless. She states that she has tried to call both of her kids but they have not called her back. She lives alone. Denies any plan for suicide. Denies any homicidal ideation. She states she just does not want to be here. She has been taking her regular medications as prescribed. Denies any substance use. Denies any past psychiatric history or admissions for suicidal ideation in the past. Denies any medical complaints. Blood pressure noted to be quite elevated on triage. She states she is taking her blood pressure medications. Denies any chest pain, shortness of breath, vision changes. <IMER Sequeira Last Filed: 10/20/22 18:41> Related Data Allergies/adverse reactions: Allergies Allergy/AdvReac Type Severity Reaction Status Date / Time No Known Allergies Allergy Verified 10/18/22 10:10 <IMER Sequeira Last Filed: 10/20/22 18:41> Review of Systems Review of Systems: All systems as dictated in HPI <IMER Sequeira Last Filed: 10/20/22 18:41> [facility] Past Medical History Medical History: Medical History Essential hypertension Fracture of greater trochanter of right femur Gastroesophageal reflux disease Hemorrhoids Hip fracture, intertrochanteric Hyperlipidemia, unspecified Hyponatremia CARRILLO (nonalcoholic steatohepatitis) Neuropathy Post-menopausal Rosacea, unspecified Type 2 diabetes mellitus Vitamin B12 deficiency Vitamin D deficiency <Armond Lugo PA-C - Last Filed: 10/20/22 18:41> Surgical History Surgical History: Surgical History History of tonsillectomy History of total hysterectomy History of tubal ligation <Armond Lugo PA-C - Last Filed: 10/20/22 18:41> Family History Family History: Family History Sibling Patient's brother is in good health Father Family history of emphysema Mother Hypertension <Armond Lugo PA-C - Last Filed: 10/20/22 18:41> Social History Social History: Social History Social History: The patient lives in [place], [place]. 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 She designates her daughter, Lizzy Carvajal, as her surrogate decision maker and she wishes to be a full code. 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
[2022-10-20 10:57] LABS: Ethanol < 10 mg/dL (<10)
[2022-10-20] MEDS: LABETALOL HCL INJ 100 MG/20 ML VIAL 20 MG IV PUSH (11:02)
[2022-10-20 11:05] LABS: Add Urine Microscopic? NO
[2022-10-20 11:08] LABS: Amphetamine Screen Urine Negative (Negative); Barbiturate Screen Urine Negative (Negative); Benzodiazepines Screen Urine Negative (Negative); Cannabinoid Screen Urine Negative (Negative); Cocaine Screen Urine Negative (Negative); Methadone Screen Urine Negative (Negative); Opiate Screen Urine Negative (Negative); Phencyclidine Screen Urine Negative (Negative)
--- NOTE | 2022-10-20 11:26 | PC.NURSE ---
Pt has been medically cleared by PA and can talk to social sciences research scientist. RN starts the process.
[2022-10-20 12:17] LABS: Influenza A QL RT-PCR Negative (Negative); Influenza B QL RT-PCR Negative (Negative); RSV RNA, RT-PCR Negative (Negative); SARS-CoV-2 RNA PCR Negative (Negative)
--- NOTE | 2022-10-20 19:20 | PC.NURSE ---
Assumed care of pt from MILAN Mcknight at this time. Pt resting in room with meal tray at this time with no further needs.
--- NOTE | 2022-10-20 19:32 | PC.NURSE ---
Pt belongings still in room. Pt is low risk on [facility] reassessment.
[2022-10-20] MEDS: PREGABALIN (*CRX) 50 MG CAPSULE 100 MG PO (21:58)
--- NOTE | 2022-10-21 01:25 | PC.NURSE ---
Varghese from [facility] called and wanted to speak to pt. Varghese also requested repeat VS and Bedside glucose, Jeremy Lay to obtain.
[2022-10-21 01:59] VITALS: BP 179/119; PULSE 89; RESP 20; TEMP 36.8; O2SAT 97
[2022-10-21 01:59] LABS: Glucose Point of Care 226 mg/dl (65-105)
--- NOTE | 2022-10-21 02:04 | PC.NURSE ---
Patient VS taken, elevated bp noted. Patient denies any symptoms at this time. ERP notified, no new orders.
--- NOTE | 2022-10-21 02:49 | PC.NURSE ---
Varghese from [facility] called wanting the rest of voluntary paperwork filled out. Varghese stated that the bottom of the form is to be completed. This RN called crisis to ask if they were to fill out the paper and Sarahy, whom filled out the paper stated she never fills the bottom portion out. Crisis stated it is for admitting facility to fill out. Notified [facility].
[2022-10-21 04:24] VITALS: BP 179/110; PULSE 85; RESP 17; TEMP 36.8; O2SAT 100
--- NOTE | 2022-10-21 04:25 | PC.NURSE ---
Patients revitalized, still elevated BP. Patient denies any symptoms or any pain. ERP notified, no new orders.
--- NOTE | 2022-10-21 06:09 | PC.NURSE ---
0602 Anuja with [facility] calls to get update on patient. This nurse informed her that [facility] has called back but has requests. She states she will follow up with [facility] and their requests and give update when she has new information.
[2022-10-21 06:24] VITALS: BP 161/93; PULSE 15; RESP 71; TEMP 36.4; O2SAT 98
--- NOTE | 2022-10-21 06:43 | PC.NURSE ---
Faxed requested information of voluntary paperwork, VS and BG to [facility] at [phone].
[2022-10-21 08:12] VITALS: BP 172/101; PULSE 72; RESP 18; TEMP 36.7; O2SAT 99
[2022-10-21] MEDS: PREGABALIN (*CRX) 50 MG CAPSULE 100 MG PO (09:43)
[2022-10-21] MEDS: DULoxetine HCL 60 MG CAPSULE.DR PO (09:43)
[2022-10-21] MEDS: LOSARTAN POTASSIUM 25 MG TABLET PO (09:43)
[2022-10-21] MEDS: metFORMIN HCL XR 500 MG TAB.SR.24H PO (09:43)
[2022-10-21 11:53] VITALS: BP 169/86; PULSE 78; RESP 16; O2SAT 98
== END 2022-10-21 13:50 ==
PROVIDERS: Physician Assistant; Emergency Provider Emergency Medicine; PCP Nurse Practitioner Family
DX: F32.A Depression, unspecified (principal); R45.851 Suicidal ideations; I10 Essential (primary) hypertension; E11.9 Type 2 diabetes mellitus without complications; K75.81 Nonalcoholic steatohepatitis (NASH); E78.5 Hyperlipidemia, unspecified; Z20.822 Contact with and (suspected) exposure to COVID-19; Z79.899 Other long term (current) drug therapy
CPT/HCPCS: 36415; 80053; 80307; 81003; 82948; 84443; 85025; 87637; 96374; 99285; A9270

== ENCOUNTER 2023-07-12 16:05 | Observation (INO) | payer OTHER, SELFPAY ==
[2023-07-12] VITALS (17 sets, daily range): BP systolic 154–176; BP diastolic 82–105; PULSE 80–103; RESP 16–24; TEMP 36.4–36.8; O2SAT 97–100; BMI 24.5
--- NOTE | ~2023-07-12 | XR_ITS ---
EXAMINATION: XR chest 2V DATE: 07/12/2023 18:36 INDICATION: Lower extremity edema and weakness TECHNIQUE: PA and lateral views of the chest were obtained. COMPARISON: Chest radiograph dated 01/02/2022 FINDINGS: The lungs are clear with no focal airspace opacities, pulmonary edema, pleural effusion or pneumothor ax. The cardiomediastinal silhouette is normal. Moderate to severe midthoracic spondylosis. IMPRESSION: 1. No acute cardiopulmonary disease. Reviewed, dictated and finalized at location A.
--- NOTE | 2023-07-12 17:39 | ED.GENADULT ---
HPI - General Adult General Chief complaint: Unspecified <Savana Weaver PA-C - Last Filed: 07/12/23 22:25> Stated complaint: not feeling good <IMER Spaulding Last Filed: 07/12/23 22:25> Time Seen by Provider: 07/12/23 17:39 <Savana Weaver PA-C - Last Filed: 07/12/23 22:25> Focused HPI: This is a 67 year old female that presents to the ER for feeling generally unwell. Patient is diabetic and has hypertension. She has not taken any of her medicines in weeks as she left AMA from a [facility] recently. Reports some lower extremity edema. She does not have anywhere to live. Denies fever, chest pain, shortness of breath, abdominal pain, vomiting, dysuria. GENERAL: Well-appearing, well-nourished, and in no acute distress. HEAD: Normocephalic, atraumatic. CHEST: Clear to auscultation. ?No respiratory distress. HEART: Regular rate and rhythm.? NEURO: ?Alert and oriented x3. Patient screened in triage and initial orders placed.? ?Additional care and disposition to be based upon?diagnostic testing and treatment. <IMER Spaulding Last Filed: 07/12/23 22:25> Related Data Home medications: Home Medications Medication Instructions Recorded Confirmed losartan 25 mg tablet 25 mg PO DAILY hypertension 07/12/23 07/12/23 <Savana Weaver PA-C - Last Filed: 07/12/23 22:25> Allergies/adverse reactions: Allergies Allergy/AdvReac Type Severity Reaction Status Date / Time No Known Allergies Allergy Verified 07/04/23 08:32 <IMER Spaulding Last Filed: 07/12/23 22:25> Review of Systems Review of Systems: CONSTITUTIONAL: Denies fever CARDIOVASCULAR: Reports edema. Denies chest pain RESPIRATORY: Denies dyspnea. GASTROINTESTINAL: Denies abdominal pain, nausea, vomiting GENITOURINARY: Denies dysuria NEUROLOGIC: Reports generalized weakness. <IMER Spaulding Last Filed: 07/12/23 22:25> All systems reviewed & are unremarkable except as noted in HPI and below <Savana Weaver PA-C - Last Filed: 07/12/23 22:25> [facility] Past Medical History Medical History: Medical History Essential hypertension Fracture of greater trochanter of right femur Gastroesophageal reflux disease Hemorrhoids Hip fracture, intertrochanteric Hyperlipidemia, unspecified Hyponatremia CARRILLO (nonalcoholic steatohepatitis) Neuropathy Post-menopausal Rosacea, unspecified Type 2 diabetes mellitus Vitamin B12 deficiency Vitamin D deficiency <Savana Weaver PA-C - Last Filed: 07/12/23 22:25> Surgical History Surgical History: Surgical History History of tonsillectomy History of total hysterectomy History of tubal ligation <Savana Weaver PA-C - Last Filed: 07/12/23 22:25> Family History Family History: Family History Sibling Patient's brother is in good health Father Family history of emphysema Mother Hypertension <Savana Weaver PA-C - Last Filed: 07/12/23 22:25> Social History Social History: Social History Social History: The patient lives in [place], [place]. 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 She designates her daughter, Lizzy Carvajal, as her surrogate decision maker and she wishes to be a full code. Smoking status: Never smoker Second hand tobacco smoke exposure: No Alcohol intake: never Substance use: never Do You Feel Safe in your Home?: Yes Lack of Transportation: No Lack of Food: Never True Current Housing: I Have Housing Concerned About Future Housing: No Difficulty Paying Gas/Electric Bills: No Difficulty Paying for Meds: No Currently Unemployed: No Education: High School Diploma/GED Difficulty w/ Childcare or Family C
--- NOTE | 2023-07-12 17:41 | ECG_ITS ---
SEE SCANNED COPY FOR CONFIRMED REPORT MTDD
[2023-07-12 18:30] LABS: Basophils Absolute Auto 0.1 K/mm3 (0.0-0.1); Basophils Percent Auto 0.6 % (0.2-1.2); Eosinophils Absolute Auto 0.1 K/mm3 (0-0.3); Eosinophils Percent Auto 1.6 % (0-4.4); Hematocrit 35.9 % (37.0-47.0); Hemoglobin 11.9 g/dL (12.0-15.0); Immature Granulocyte Absolute 0.02 K/mm3 (0.00-0.031); Immature Granulocyte Percent A 0.2 % (0-0.5); Lymphocytes Absolute Auto 2.58 K/mm3 (0.9-3.2); Lymphocytes Percent Auto 31.3 % (18.3-44.2); Mean Corpuscular HGB Conc 33.1 g/dl (32-36); Mean Corpuscular Hemoglobin 30.9 pg (26-34); Mean Corpuscular Volume 93.2 fl (80-100); Mean Platelet Volume 10.6 fl (7.4-10.4); Monocytes Absolute Auto 0.6 K/mm3 (0.1-0.6); Monocytes Percent Auto 7.2 % (2.6-8.5); Neutrophils Absolute Auto 4.9 K/mm3 (1.3-6.7); Neutrophils Percent Auto 59.1 % (45.5-73.1); Platelet Count Result 414 k/mm3 (150-375); Red Blood Count 3.85 M/mm3 (4.2-5.4); Red Cell Distribution Width 14.3 % (11.5-14.5); White Blood Count 8.2 K/mm3 (4.5-10.0)
[2023-07-12 18:36] LABS: Appearance Urine Cloudy (Clear); Bacteria Urine 3+ /hpf; Bilirubin Urine Negative (Negative); Blood Urine Negative (Negative); Color Urine Yellow (Yellow); Glucose Urine UA Trace mg/dL (Negative); Ketones Urine Negative (Negative); Leukocyte Esterase Ur 1+ LEU/UL (Negative); Nitrate Urine Negative (Negative); Non Pathogenic Casts 0-2; Protein Urine Negative (Negative); RBC Urine 0-2 /hpf (0-2); Squamous Epithelial Cell Urine Moderate /hpf (Few)
[2023-07-12 18:38] LABS: Add Urine Microscopic? YES
--- NOTE | 2023-07-12 19:22 | PC.NURSE ---
this rn assumed care of patient. this rn took patient report from MILAN Jerry.
[2023-07-12 19:42] LABS: Alanine Aminotransferase 13 U/L (6-35); Albumin Level 3.5 g/dL (3.5-5.1); Alkaline Phosphatase 111 U/L (38-126); Anion Gap 5 mmol/L (4-12); Aspartate Amino Transferase 17 U/L (14-36); Bilirubin,Total 0.6 mg/dL (0.2-1.3); Blood Urea Nitrogen 19 mg/dL (7-17); Calcium 8.8 mg/dL (8.4-10.2); Carbon Dioxide 22 mmol/L (22-30); Chloride 109 mmol/L (98-107); Estimated CRCL calculation 69 ml/min; Estimated Glomerular Filt Rate > 60; Glucose 217 mg/dL (65-110); Potassium 3.9 mmol/L (3.4-5.0); Sodium 136 mmol/L (137-145)
[2023-07-12 19:51] LABS: NT Pro B Type Natriuretic Pept 190 pg/mL (19.9-100)
[2023-07-12 22:19] LABS: Glucose Point of Care 282 mg/dl (65-105)
--- NOTE | 2023-07-12 23:03 | ADMGEN ---
This patient, Hailey Rapahel, was admitted to 3 Med Surg Room 302-01. Patient/family oriented to hospital policies and general routines including ID bracelet, bed and alarms, visiting hours, pain management, procedures, bathroom and other care routines, personal items, smoking policy, room service/diet, and visiting hours. Information on how to activate the Rapid Response Team has been discussed. Patient/Family are encouraged to report perceived risks to care and to ask questions if they do not understand what they are told or what they should do.
[2023-07-13 06:00] VITALS: BP 174/98; PULSE 72; RESP 20; TEMP 36.6; O2SAT 99
[2023-07-13 07:32] LABS: Glucose Point of Care 196 mg/dl (65-105)
--- NOTE | 2023-07-13 08:43 | PM.IMHP ---
H&P: HPI History of Present Illness Date/Time: 07/13/23 12:43 Chief Complaint: Not feeling well Narrative: This is a 67-year-old female patient admitted to the hospital for social work placement issues. Patient has a history of hypertension and diabetes has not been taking her medicines the last 3 weeks since she signed out AMA from longterm in [place] where she was residing for the prior 8 months. Patient reports that she left because she did not feel like she needed to be in a longterm. She has been living in a motel since leaving the but came to the emergency department stating that she overall just did not feel well. Patient is currently otherwise unhoused. She was found to have hyperglycemia and elevated blood pressure consistent with prior past medical history and medication noncompliance. Remainder of workup was grossly unremarkable. Patient was admitted for social work consult. Patient denies smoking, drinking or drug use. She will not further expand on how she was not feeling well and not really explaining any other answers to questions. She denies pain or discomfort at this time. Review of Systems Review of Systems: All systems reviewed & are unremarkable except as noted in HPI and below PMFSH Past Medical History Medical History Essential hypertension Fracture of greater trochanter of right femur Gastroesophageal reflux disease Hemorrhoids Hip fracture, intertrochanteric Hyperlipidemia, unspecified Hyponatremia CARRILLO (nonalcoholic steatohepatitis) Neuropathy Post-menopausal Rosacea, unspecified Type 2 diabetes mellitus Vitamin B12 deficiency Vitamin D deficiency Surgical History Surgical History History of tonsillectomy History of total hysterectomy History of tubal ligation Family History Family History Sibling Patient's brother is in good health Father Family history of emphysema Mother Hypertension Social History Social History Social History: The patient lives in [place], [place]. 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 She designates her daughter, Lizzy Carvajal, as her surrogate decision maker and she wishes to be a full code. 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 [employer] Gender identity (if verbalized by the patient): Female Sexual Orientation (if Verbalized by the Patient): Straight or Heterosexual Spiritual care concerns: No Meds Home Medications and Allergies Home Medications Medication Instructions Recorded Confirmed Type polyethylene glycol 3350 17 gram 17 g PO QAM PRN Constipation 30 08/05/19 07/12/23 Rx oral powder packet (Miralax) days duloxetine 60 mg capsule,delayed 60 mg PO DAILY 30 days #30 caps 07/25/22 07/12/23 Rx release metformin 500 mg tablet,extended See Rx Instructions .Route 07/04/23 07/12/23 Rx release 24 hr .COMPLEX #360 tabs losartan 25 mg tablet 25 mg PO DAILY hypertension 07/12/23 07/12/23 History aspirin 81 mg chewable tablet 81 mg PO DAILY 07/13/23 07/13/23 History Allergies Allergy/AdvReac Type Severity Reaction Status Date / Time No Known Allergies Allergy Verified 07/04/23 08:32 Vital Signs Vital
[2023-07-13] MEDS: metFORMIN HCL XR 500 MG TAB.SR.24H 1000 MG BY MOUTH ×2 (09:05→17:05)
[2023-07-13] MEDS: DULoxetine HCL 60 MG CAPSULE.DR PO (09:06)
[2023-07-13] MEDS: LOSARTAN POTASSIUM 25 MG TABLET PO (09:06)
[2023-07-13] MEDS: ASPIRIN 81 MG CHEWABLE TABLET PO (11:28)
[2023-07-13 12:01] LABS: Glucose Point of Care 204 mg/dl (65-105)
[2023-07-13] MEDS: INSULIN ASPART (*BKC) 100 UNITS/ML SUB-Q (12:48)
[2023-07-13 14:00] VITALS: BP 149/87; PULSE 90; RESP 16; TEMP 36.2; O2SAT 99
[2023-07-13 16:29] LABS: Glucose Point of Care 165 mg/dl (65-105)
[2023-07-13 21:52] LABS: Glucose Point of Care 172 mg/dl (65-105)
[2023-07-13 21:55] VITALS: BP 161/83; PULSE 83; RESP 18; TEMP 36.4; O2SAT 98
[2023-07-14 06:00] VITALS: BP 179/82; PULSE 73; RESP 18; TEMP 36.6; O2SAT 98
[2023-07-14 06:13] LABS: Basophils Percent Auto 0.4 % (0.2-1.2); Eosinophils Absolute Auto 0.1 K/mm3 (0-0.3); Eosinophils Percent Auto 1.6 % (0-4.4); Hematocrit 36.4 % (37.0-47.0); Hemoglobin 11.5 g/dL (12.0-15.0); Immature Granulocyte Absolute 0.02 K/mm3 (0.00-0.031); Immature Granulocyte Percent A 0.2 % (0-0.5); Lymphocytes Absolute Auto 2.17 K/mm3 (0.9-3.2); Lymphocytes Percent Auto 26.1 % (18.3-44.2); Mean Corpuscular HGB Conc 31.6 g/dl (32-36); Mean Corpuscular Hemoglobin 29.9 pg (26-34); Mean Corpuscular Volume 94.8 fl (80-100); Mean Platelet Volume 10.6 fl (7.4-10.4); Monocytes Absolute Auto 0.6 K/mm3 (0.1-0.6); Monocytes Percent Auto 7.6 % (2.6-8.5); Neutrophils Absolute Auto 5.3 K/mm3 (1.3-6.7); Neutrophils Percent Auto 64.1 % (45.5-73.1); Platelet Count Result 366 k/mm3 (150-375); Red Blood Count 3.84 M/mm3 (4.2-5.4); Red Cell Distribution Width 13.8 % (11.5-14.5); White Blood Count 8.3 K/mm3 (4.5-10.0)
[2023-07-14 06:20] LABS: Alanine Aminotransferase 12 U/L (6-35); Albumin Level 3.4 g/dL (3.5-5.1); Alkaline Phosphatase 117 U/L (38-126); Anion Gap 3 mmol/L (4-12); Aspartate Amino Transferase 15 U/L (14-36); Bilirubin,Total 0.4 mg/dL (0.2-1.3); Blood Urea Nitrogen 13 mg/dL (7-17); Calcium 8.8 mg/dL (8.4-10.2); Carbon Dioxide 26 mmol/L (22-30); Chloride 108 mmol/L (98-107); Estimated CRCL calculation 69 ml/min; Estimated Glomerular Filt Rate > 60; Glucose 163 mg/dL (65-110); Magnesium 1.5 mg/dL (1.6-2.3); Potassium 3.8 mmol/L (3.4-5.0); Sodium 137 mmol/L (137-145)
[2023-07-14 07:22] LABS: Glucose Point of Care 173 mg/dl (65-105)
[2023-07-14] MEDS: LOSARTAN POTASSIUM 25 MG TABLET PO (08:53)
[2023-07-14] MEDS: metFORMIN HCL XR 500 MG TAB.SR.24H 1000 MG BY MOUTH (08:53)
[2023-07-14] MEDS: DULoxetine HCL 60 MG CAPSULE.DR PO (08:53)
[2023-07-14] MEDS: ASPIRIN 81 MG CHEWABLE TABLET PO (08:53)
[2023-07-14] MEDS: MAGNESIUM SULFATE 3GM/D5W100ML 3 GM/100 ML BAG IVPB (09:24)
[2023-07-14 11:26] LABS: Glucose Point of Care 228 mg/dl (65-105)
[2023-07-14] MEDS: INSULIN ASPART (*BKC) 100 UNITS/ML SUB-Q (11:50)
[2023-07-14 14:00] VITALS: BP 168/89; PULSE 95; RESP 18; TEMP 36.3; O2SAT 99
--- NOTE | 2023-07-14 14:06 | PM.DS ---
DS: Admitting Diagnosis Discharge Date 07/14/23 Admitting Diagnosis placement DS: Discharge Diagnosis Discharge Diagnosis (1) Uncontrolled diabetes mellitus: Code(s): E11.65 - Type 2 diabetes mellitus with hyperglycemia Status: Acute (2) Essential (primary) hypertension: Code(s): I10 - Essential (primary) hypertension Status: Acute (3) Adult failure to thrive: Code(s): R62.7 - Adult failure to thrive Status: Acute DS: Summary Hospital Course Hospital Course: This is a 67-year-old female patient admitted to the hospital for social work placement issues.? Patient has a history of hypertension and diabetes has not been taking her medicines the last 3 weeks since she signed out AMA from senior care in [place] where she was residing for the prior 8 months.? Patient reports that she left because she did not feel like she needed to be in a senior care.? She has been living in a motel since leaving the but came to the emergency department stating that she overall just did not feel well.? Patient is currently otherwise unhoused.? She was found to have hyperglycemia and elevated blood pressure consistent with prior past medical history and medication noncompliance.? Remainder of workup was grossly unremarkable.? Patient was admitted for social work consult.? care coordination was able to get patient placed at local senior care. Patient was agreeable to this. She will be discharged back there on appropriate medications. Time Spent with Patient Time attestation: Total time spent providing and/or coordinating discharge services: Exam Narrative: GENERAL: Comfortable, no acute distress HENMT: moist mucous membranes EYES: EOM intact b/l NECK: no lymphadenopathy RESPIRATORY: clear to auscultation, no increased respiratory effort CARDIO: Regular rate and rhythm GI: soft, nontender, bowel sounds present SKIN/EXTREMITIES: no rashes, no edema, no redness or tenderness NEURO: PROM intact, answers questions appropriately, A&O x4 DS: Data Data Completed and Pending Labs on day of discharge: Labs from last 24 hours 07/14/23 07/14/23 07/14/23 11:24 07:18 05:01 WBC 8.3 RBC 3.84 L Hgb 11.5 L Hct 36.4 L MCV 94.8 MCH 29.9 MCHC 31.6 L RDW 13.8 Plt Count 366 MPV 10.6 H Immature Gran % (Auto) 0.2 Neut % (Auto) 64.1 Lymph % (Auto) 26.1 Fulton % (Auto) 7.6 Eos % (Auto) 1.6 Baso % (Auto) 0.4 Lymph # (Auto) 2.17 Fulton # (Auto) 0.6 Eos # (Auto) 0.1 Baso # (Auto) 0.0 Abs Immat Gran (auto) 0.02 Absolute Neuts (auto) 5.3 Absolute Nucleated RBC 0.000 Nucleated RBC % 0.0 Sodium 137 Potassium 3.8 Chloride 108 H Carbon Dioxide 26 Anion Gap 3 L BUN 13 D Creatinine 0.60 L Estim Creat Clear Calc 69 Estimated GFR > 60 Glucose 163 H POC Capillary Glucose 228 H 173 H Calcium 8.8 Magnesium 1.5 L Total Bilirubin 0.4 AST 15 ALT 12 Alkaline Phosphatase 117 Total Protein 6.0 L Albumin 3.4 L 07/13/23 07/13/23 20:48 16:25 WBC RBC Hgb Hct MCV MCH MCHC RDW Plt Count MPV Immature Gran % (Auto) Neut % (Auto) Lymph % (Auto) Fulton % (Auto) Eos % (Auto) Baso % (Auto) Lymph # (Auto) Fulton # (Auto) Eos # (Auto) Baso # (Auto) Abs Immat Gran (auto) Absolute Neuts (auto) Absolute Nucleated RBC Nucleated RBC % Sodium Potassium Chloride Carbon Dioxide Anion Gap BUN Creatinine Estim Creat Clear Calc Estimated GFR Glucose POC Capillary Glucose 172 H 165 H Calcium Magnesium Total Bilirubin AST ALT Alkaline Phosphatase Total Protein Albumin Discharge Plan Discharge Discharging Clinician: Mary Wagner Patient Disposition: NH Alf/Asst Living Activity: no preference Diet: heart healthy Discharge Instructions: Discharge disposition: Take medicat
== END 2023-07-14 15:10 ==
LOC: ANHED 18:21 → ANH3MEDSUR 21:43
PROVIDERS: Nurse Practitioner; Admitting Provider Internal Medicine; Emergency Provider Physician Assistant; PCP Family Medicine; Visit Provider Internal Medicine
DX: E11.65 Type 2 diabetes mellitus with hyperglycemia (principal); R62.7 Adult failure to thrive; R60.0 Localized edema; Z59.00 Homelessness unspecified; I10 Essential (primary) hypertension; E78.5 Hyperlipidemia, unspecified; K75.81 Nonalcoholic steatohepatitis (NASH); E55.9 Vitamin D deficiency, unspecified; E53.8 Deficiency of other specified B group vitamins; K21.9 Gastro-esophageal reflux disease without esophagitis; Z68.24 Body mass index [BMI] 24.0-24.9, adult; Z79.84 Long term (current) use of oral hypoglycemic drugs; Z79.82 Long term (current) use of aspirin
CPT/HCPCS: 36415; 71046; 80053; 81001; 82948; 83036; 83735; 83880; 85025; 87086; 93005; 96374; 97165; 99285; A9270; G0378; J1815; J3475

== ENCOUNTER 2023-10-19 14:58 | Emergency (ER) | payer OTHER, SELFPAY ==
[2023-10-19 14:58] VITALS: BP 182/103; PULSE 99; RESP 16; TEMP 36.3; O2SAT 100
--- NOTE | 2023-10-19 15:16 | ED.GENADULT ---
HPI - General Adult General Chief complaint: Urogenital-Female Stated complaint: can't urinate Time Seen by Provider: 10/19/23 15:06 History of Present Illness HPI narrative: Patient is a 68-year-old female who presents ER with concerns for being unable to urinate. She urinated this morning then had 2 sodas and has been unable to pee since then. She has had the sense that she needs to urinate. Denies any lower abdominal pain. No history of urinary retention. No new medications. Bladder scan shows 81 mL urine. Related Data Home Medications Medication Instructions Recorded Confirmed aspirin 81 mg chewable tablet 81 mg PO DAILY 07/13/23 07/13/23 Allergies Allergy/AdvReac Type Severity Reaction Status Date / Time No Known Allergies Allergy Verified 10/15/23 13:20 Review of Systems Constitutional: Constitutional: Reports no additional constitutional complaints Cardiovascular: Cardiovascular: Reports no additional cardiovascular complaints Respiratory: Respiratory: Reports no additional respiratory complaints Gastrointestinal: Gastrointestinal: Reports no additional gastrointestinal complaints Genitourinary: Genitourinary: Denies nocturia, Denies dysuria, Denies pelvic pain and Denies urinary incontinence Comments: Urinary retention PMFSH Past Medical History Medical History Essential hypertension Fracture of greater trochanter of right femur Gastroesophageal reflux disease Hemorrhoids Hip fracture, intertrochanteric Hyperlipidemia, unspecified Hyponatremia CARRILLO (nonalcoholic steatohepatitis) Neuropathy Post-menopausal Rosacea, unspecified Type 2 diabetes mellitus Vitamin B12 deficiency Vitamin D deficiency Surgical History Surgical History History of tonsillectomy History of total hysterectomy History of tubal ligation Family History Family History Sibling Patient's brother is in good health Father Family history of emphysema Mother Hypertension Social History Social History (Updated 10/15/23 @ 13:24 by Cathleen Ribera CMA) Social History: The patient lives in [place], [place]. 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 She designates her daughter, Lizzy Carvajal, as her surrogate decision maker and she wishes to be a full code. 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 HEAD: Normocephalic, atraumatic. ENT: Mucous membranes moist. CHEST: Clear to auscultation. No respiratory distress. HEART: Regular rate and rhythm. Normal peripheral pulses. ABDOMEN: Soft, nontender, nondistended. EXTREMITIES: Normal range of motion. No edema. SKIN: Warm, dry, no rash. NEURO: Alert and oriented x3. PSYCH: Normal mood and affect. Course Course Emergency Course: No infection. Catheterization for 40 mL of urine. Bladder scan had 81 mL. I do not feel she needs a Worthington catheter. Discussed return precautions. Vital Signs Vital signs: Vi
[2023-10-19 17:08] LABS: Appearance Urine Clear (Clear); Color Urine Yellow (Yellow)
[2023-10-19 17:09] LABS: Blood Urine Negative (Negative); Glucose Urine UA 2+ mg/dL (Negative); Ketones Urine Negative (Negative); Protein Urine Negative (Negative); Specific Grav Ur 1.015 (1.001-1.035)
[2023-10-19 17:10] LABS: Add Urine Microscopic? YES; Bilirubin Urine Negative (Negative); Leukocyte Esterase Ur Trace LEU/UL (Negative); Nitrate Urine Negative (Negative); Urobilinogen Urine 0.2 mg/dL (<2.0)
[2023-10-19 17:21] LABS: Bacteria Urine None seen /hpf; RBC Urine None seen /hpf (0-2); Squamous Epithelial Cell Urine None Seen /hpf (Few); WBC Urine Rare /hpf (0-3)
== END 2023-10-19 17:43 | disposition home or self-care (01) ==
PROVIDERS: Emergency Provider Emergency Medicine; PCP Nurse Practitioner Family
DX: R39.11 Hesitancy of micturition (principal); I10 Essential (primary) hypertension; K21.9 Gastro-esophageal reflux disease without esophagitis; K75.81 Nonalcoholic steatohepatitis (NASH); E11.9 Type 2 diabetes mellitus without complications
CPT/HCPCS: 81001; 99283

== ENCOUNTER 2023-10-20 15:18 | Emergency (ER) | payer MEDICARE, SELFPAY ==
[2023-10-20 15:21] VITALS: BP 138/100; PULSE 100; RESP 18; TEMP 36.6; O2SAT 100
[2023-10-20 17:51] LABS: Basophils Absolute Auto 0.1 K/mm3 (0.0-0.1); Basophils Percent Auto 0.6 % (0.2-1.2); Eosinophils Absolute Auto 0.1 K/mm3 (0-0.3); Eosinophils Percent Auto 1.2 % (0-4.4); Hematocrit 39.6 % (37.0-47.0); Immature Granulocyte Absolute 0.03 K/mm3 (0.00-0.031); Immature Granulocyte Percent A 0.3 % (0-0.5); Lymphocytes Absolute Auto 2.26 K/mm3 (0.9-3.2); Lymphocytes Percent Auto 21.6 % (18.3-44.2); Mean Corpuscular HGB Conc 32.8 g/dl (32-36); Mean Corpuscular Hemoglobin 30.2 pg (26-34); Mean Corpuscular Volume 92.1 fl (80-100); Monocytes Absolute Auto 0.6 K/mm3 (0.1-0.6); Monocytes Percent Auto 5.9 % (2.6-8.5); Neutrophils Absolute Auto 7.4 K/mm3 (1.3-6.7); Neutrophils Percent Auto 70.4 % (45.5-73.1); Platelet Count Result 463 k/mm3 (150-375); Red Cell Distribution Width 13.8 % (11.5-14.5); White Blood Count 10.5 K/mm3 (4.5-10.0)
--- NOTE | 2023-10-20 17:57 | ED.FEMALEGU ---
HPI - Female Genitourinary General Chief complaint: Urogenital-Female Stated complaint: urinary retention Time Seen by Provider: 10/20/23 17:31 History of Present Illness HPI Narrative: Patient is a 68-year-old female who presents to the emergency department this evening complaining of inability to urinate. Patient states that she has not urinated since this morning. Patient was seen here at our facility yesterday for similar findings and a bladder scan revealed 81 cc of urine. Straight cath was placed to obtain urine and patient was discharged with outpatient follow-up. Today patient presents with similar symptoms and during my assessment when asked when was her last voided today, patient states that she was just able to pee a few minutes ago. Related Data Home Medications Medication Instructions Recorded Confirmed aspirin 81 mg chewable tablet 81 mg PO DAILY 07/13/23 07/13/23 Allergies Allergy/AdvReac Type Severity Reaction Status Date / Time No Known Allergies Allergy Verified 10/20/23 15:19 Review of Systems Review of Systems: All systems are reviewed and are negative unless stated otherwise in the HPI. [facility] Past Medical History Medical History Essential hypertension Fracture of greater trochanter of right femur Gastroesophageal reflux disease Hemorrhoids Hip fracture, intertrochanteric Hyperlipidemia, unspecified Hyponatremia CARRILLO (nonalcoholic steatohepatitis) Neuropathy Post-menopausal Rosacea, unspecified Type 2 diabetes mellitus Vitamin B12 deficiency Vitamin D deficiency Surgical History Surgical History History of tonsillectomy History of total hysterectomy History of tubal ligation Family History Family History Sibling Patient's brother is in good health Father Family history of emphysema Mother Hypertension Social History Social History Social History: The patient lives in [place], [place]. 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 She designates her daughter, Lizzy Carvajal, as her surrogate decision maker and she wishes to be a full code. 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 HEENT: PERRL, no rhinorrhea, no post nasal drip, oropharynx clear. Cardiovascular: Regular rate and rhythm, no murmurs, rubs or gallops, no peripheral edema. Respiratory: Clear to auscultation bilaterally, no tachypnea, no wheezing, no rhonchi, no rubs, no respiratory distress. Abdomen: Soft, nontender, nondistended, no rebound, no guarding, no peritoneal signs. Musculoskeletal: No joint swelling or deformity, normal muscle tone. Skin: No rashes or petechia, no signs of infection. Neurological: Alert and oriented to person, place, and time. Follows all commands. No focal deficits, speech is clear and fluent. Course Vital Signs Vital signs: Vital Signs Temperature 98 F 10/20/23 15:21 Pulse Rate 100
[2023-10-20 17:58] VITALS: BP 173/107; PULSE 86; RESP 16; TEMP 36.7; O2SAT 99
[2023-10-20 18:02] LABS: Alanine Aminotransferase 13 U/L (6-35); Albumin Level 4.3 g/dL (3.5-5.1); Alkaline Phosphatase 120 U/L (38-126); Anion Gap 12 mmol/L (4-12); Aspartate Amino Transferase 19 U/L (14-36); Bilirubin,Total 0.4 mg/dL (0.2-1.3); Blood Urea Nitrogen 25 mg/dL (7-17); Calcium 9.7 mg/dL (8.4-10.2); Carbon Dioxide 21 mmol/L (22-30); Chloride 105 mmol/L (98-107); Estimated CRCL calculation 56 ml/min; Estimated Glomerular Filt Rate > 60; Glucose 136 mg/dL (65-110); Potassium 3.9 mmol/L (3.4-5.0); Sodium 138 mmol/L (137-145)
[2023-10-20 18:30] VITALS: BP 180/105; PULSE 81; RESP 16; O2SAT 100
[2023-10-20 19:29] LABS: Bacteria Urine None Seen /hpf; Non Pathogenic Casts 0-2; RBC Urine 0-2 /hpf (0-2); Squamous Epithelial Cell Urine None Seen /hpf (Few); WBC Urine 0-5 /hpf (0-3)
[2023-10-20 19:31] LABS: Appearance Urine Clear (Clear); Blood Urine Negative (Negative); Color Urine Yellow (Yellow); Glucose Urine UA Negative (Negative); Ketones Urine Negative (Negative); Protein Urine Negative (Negative); Specific Grav Ur <= 1.005 (1.001-1.035)
[2023-10-20 19:32] LABS: Add Urine Microscopic? YES; Bilirubin Urine Negative (Negative); Leukocyte Esterase Ur 1+ LEU/UL (Negative); Nitrate Urine Negative (Negative); Urobilinogen Urine 0.2 mg/dL (<2.0)
== END 2023-10-20 19:55 | disposition home or self-care (01) ==
PROVIDERS: Emergency Provider Emergency Medicine; PCP Nurse Practitioner Family
DX: R39.11 Hesitancy of micturition (principal); I10 Essential (primary) hypertension; K21.9 Gastro-esophageal reflux disease without esophagitis; E78.5 Hyperlipidemia, unspecified; K75.81 Nonalcoholic steatohepatitis (NASH); E11.9 Type 2 diabetes mellitus without complications
CPT/HCPCS: 36415; 80053; 81001; 85025; 87086; 87088; 99283

== ENCOUNTER 2023-10-22 09:43 | Outpatient (CLI) | payer MEDICARE, SELFPAY ==
[2023-10-22 10:26] LABS: Basophils Percent Auto 0.5 % (0.2-1.2); Eosinophils Absolute Auto 0.1 K/mm3 (0-0.3); Eosinophils Percent Auto 1.2 % (0-4.4); Hematocrit 39.2 % (37.0-47.0); Hemoglobin 12.7 g/dL (12.0-15.0); Immature Granulocyte Absolute 0.02 K/mm3 (0.00-0.031); Immature Granulocyte Percent A 0.3 % (0-0.5); Lymphocytes Absolute Auto 2.02 K/mm3 (0.9-3.2); Mean Corpuscular HGB Conc 32.4 g/dl (32-36); Mean Corpuscular Hemoglobin 30.1 pg (26-34); Mean Corpuscular Volume 92.9 fl (80-100); Mean Platelet Volume 10.1 fl (7.4-10.4); Monocytes Absolute Auto 0.5 K/mm3 (0.1-0.6); Monocytes Percent Auto 6.1 % (2.6-8.5); Neutrophils Absolute Auto 4.9 K/mm3 (1.3-6.7); Neutrophils Percent Auto 64.9 % (45.5-73.1); Platelet Count Result 399 k/mm3 (150-375); Red Blood Count 4.22 M/mm3 (4.2-5.4); White Blood Count 7.5 K/mm3 (4.5-10.0)
[2023-10-22 10:46] LABS: Hemoglobin A1C 7.3 % (<5.7)
[2023-10-22 10:48] LABS: Alanine Aminotransferase 10 U/L (6-35); Albumin Level 4.1 g/dL (3.5-5.1); Alkaline Phosphatase 98 U/L (38-126); Anion Gap 9 mmol/L (4-12); Aspartate Amino Transferase 17 U/L (14-36); Bilirubin,Total 0.7 mg/dL (0.2-1.3); Blood Urea Nitrogen 16 mg/dL (7-17); Calcium 9.3 mg/dL (8.4-10.2); Carbon Dioxide 26 mmol/L (22-30); Chloride 105 mmol/L (98-107); Estimated Glomerular Filt Rate > 60; Glucose 152 mg/dL (65-110); Potassium 3.9 mmol/L (3.4-5.0); Sodium 140 mmol/L (137-145)
[2023-10-22 10:56] LABS: Creatinine Urine 56.6 mg/dL
[2023-10-22 11:15] LABS: MALB Creatinine Ratio < 10.6 mg/g (0-30); Microalbumin Urine Random < 6.0 mg/L (0-16.7)
[2023-10-22 11:15] LABS: Vitamin D 25 Hydroxy 29.5 ng/mL
[2023-10-22 11:54] LABS: Folic Acid 6.3 ng/mL (2.76->20)
[2023-10-24 16:54] LABS: Vitamin B1 7 nmol/L (8-30)
[2023-10-24 19:33] LABS: Vitamin B6 2.8 ng/mL (2.1-21.7)
[2023-10-27 12:23] LABS: Vitamin B2 5.8 nmol/L (6.2-39.0)
== END 2023-10-22 09:44 | disposition home or self-care (01) ==
LOC: ANHLAB 09:53
PROVIDERS: PCP Nurse Practitioner Family; Visit Provider Nurse Practitioner Family
DX: E11.65 Type 2 diabetes mellitus with hyperglycemia (principal); E78.5 Hyperlipidemia, unspecified; I10 Essential (primary) hypertension; K75.81 Nonalcoholic steatohepatitis (NASH); E53.8 Deficiency of other specified B group vitamins; E55.9 Vitamin D deficiency, unspecified; G62.9 Polyneuropathy, unspecified
CPT/HCPCS: 36415; 80053; 82043; 82306; 82607; 82746; 83036; 84207; 84252; 84425; 85025

== ENCOUNTER 2023-10-22 12:47 | Emergency (ER) | payer MEDICARE, SELFPAY ==
--- NOTE | ~2023-10-22 | CT_ITS ---
EXAMINATION: CT abdomen pelvis w con DATE: 10/22/2023 14:32 INDICATION: Constipation. Urinary retention. TECHNIQUE: Computed tomography (CT) of the abdomen and pelvis was performed with 100 mL Omnipaque 350 intravenous contrast. Automated exposure control and iterative reconstruction technique were employe d. The dose-length product was 325.45 mGy-cm. COMPARISON: Pelvis CT 01/02/2022 FINDINGS: The visualized portions of the lung bases demonstrate mild atelectasis. No pleural effusion . The heart size is normal. The liver, gallbladder, spleen, pancreas, adrenal glands, and left kidney are normal. There is a 10 mm cyst in right kidney. Stool distends the rectosigmoid, which demonstrat es wall thickening, consistent with stercoral colitis. There is a large volume of stool in the colon. The appendix is normal. There are no pathologically enlarged lymph nodes. There is calcified atheros clerosis of the aorta and many of the other arteries. There is no free intraperitoneal fluid. The naina dder is decompressed by a Worthington catheter. There is a right hip bipolar hemiarthroplasty. There is sev ere thoracic and lumbar spondylosis. IMPRESSION: 1. Stercoral colitis. Reviewed, dictated and finalized at location A. IMPRESSION: 1. Stercoral colitis.
[2023-10-22 12:51] VITALS: BP 171/93; PULSE 100; RESP 16; TEMP 36.6; O2SAT 99
--- NOTE | 2023-10-22 13:04 | ED.GENADULT ---
HPI - General Adult General Chief complaint: Urogenital-Female Stated complaint: can't urinate Time Seen by Provider: 10/22/23 12:49 History of Present Illness HPI narrative: 68-year-old female presented to the emergency department for evaluation for decreased urination. Patient states she was recently diagnosed with urinary retention. Patient reports is her 3rd visit to the emergency department. Patient is also complaining of severe constipation. During previous visit to the emergency department patient was not found to have any urinary retention and patient was discharged home. Patient states she has not been taking anything for constipation because she cannot afford it. Related Data Home Medications Medication Instructions Recorded Confirmed aspirin 81 mg chewable tablet 81 mg PO DAILY 07/13/23 07/13/23 Allergies Allergy/AdvReac Type Severity Reaction Status Date / Time No Known Allergies Allergy Verified 10/20/23 15:19 Review of Systems Review of Systems: All systems reviewed & are unremarkable except as noted in HPI and below PMFSH Past Medical History Medical History Essential hypertension Fracture of greater trochanter of right femur Gastroesophageal reflux disease Hemorrhoids Hip fracture, intertrochanteric Hyperlipidemia, unspecified Hyponatremia CARRILLO (nonalcoholic steatohepatitis) Neuropathy Post-menopausal Rosacea, unspecified Type 2 diabetes mellitus Vitamin B12 deficiency Vitamin D deficiency Surgical History Surgical History History of tonsillectomy History of total hysterectomy History of tubal ligation Family History Family History Sibling Patient's brother is in good health Father Family history of emphysema Mother Hypertension Social History Social History Social History: The patient lives in [place], [place]. 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 She designates her daughter, Lizzy Carvajal, as her surrogate decision maker and she wishes to be a full code. Smoking status: Never smoker Second hand tobacco smoke exposure: No Alcohol intake: never Substance use: never Do You Feel Safe in your Home?: Yes Lack of Transportation: No Lack of Food: Never True Current Housing: I Have Housing Concerned About Future Housing: No Difficulty Paying Gas/Electric Bills: No Difficulty Paying for Meds: No Currently Unemployed: No Education: High School Diploma/GED Difficulty w/ Childcare or Family Care: No Living arrangements: alone Occupation/Education: occupation Additional occupation/education comments: [employer] at [employer] Gender identity (if verbalized by the patient): Female Sexual Orientation (if Verbalized by the Patient): Straight or Heterosexual Spiritual care concerns: No Agree to blood products: Yes Exam Narrative: APPEARANCE: Well appearing, no pain, no distress, well-nourished. HEAD: normocephalic, atraumatic. EYES: PERRLA/EOMI, conjunctivae clear. NOSE: Normal no drainage EARS:TMS clear with good light reflex. THROAT: Pharynx clear, no exudate. NECK: Supple. No adenopathy, no masses. RESPIRATORY: Airway patent, respirations nonlabored. Clear to auscultation bilaterally, no rales, rhonchi, wheezing. CARDIOVASCULAR: Regular rate and rhythm without murmurs rubs or gallops. ABDOMINAL: Soft, nontender, nondistended, normal bowel sounds MUSCULOSKELETAL: Moves all extremities. Strength/ROM intact, No edema, No calf tenderness. NEURO: Alert. Cranial nerves II through XII intact. Grossly intact SKIN: Warm, dry. Normal Color Course Course Emergency Course: Patient had significant response to the soapsuds enema and passed a large amount of stool. Anthony
[2023-10-22 13:42] LABS: Basophils Percent Auto 0.5 % (0.2-1.2); Eosinophils Percent Auto 0.5 % (0-4.4); Hematocrit 37.8 % (37.0-47.0); Hemoglobin 12.4 g/dL (12.0-15.0); Immature Granulocyte Absolute 0.02 K/mm3 (0.00-0.031); Immature Granulocyte Percent A 0.3 % (0-0.5); Lymphocytes Absolute Auto 1.83 K/mm3 (0.9-3.2); Mean Corpuscular HGB Conc 32.8 g/dl (32-36); Mean Corpuscular Hemoglobin 30.3 pg (26-34); Mean Corpuscular Volume 92.4 fl (80-100); Mean Platelet Volume 10.1 fl (7.4-10.4); Monocytes Absolute Auto 0.6 K/mm3 (0.1-0.6); Monocytes Percent Auto 7.7 % (2.6-8.5); Neutrophils Absolute Auto 5.4 K/mm3 (1.3-6.7); Platelet Count Result 404 k/mm3 (150-375); Red Blood Count 4.09 M/mm3 (4.2-5.4); Red Cell Distribution Width 13.9 % (11.5-14.5)
[2023-10-22 13:47] LABS: Add Urine Microscopic? YES; Appearance Urine Clear (Clear); Bacteria Urine None Seen /hpf; Bilirubin Urine Negative (Negative); Blood Urine Negative (Negative); Color Urine Yellow (Yellow); Glucose Urine UA 2+ mg/dL (Negative); Ketones Urine Negative (Negative); Leukocyte Esterase Ur Trace LEU/UL (Negative); Nitrate Urine Negative (Negative); Non Pathogenic Casts 0-2; Protein Urine Negative (Negative); RBC Urine 0-2 /hpf (0-2); Specific Grav Ur 1.015 (1.001-1.035); Squamous Epithelial Cell Urine None Seen /hpf (Few); Urobilinogen Urine 0.2 mg/dL (<2.0); WBC Urine 0-5 /hpf (0-3); pH Urine 5.5 (5.0-9.0)
[2023-10-22 13:48] LABS: Alanine Aminotransferase 12 U/L (6-35); Albumin Level 3.9 g/dL (3.5-5.1); Alkaline Phosphatase 96 U/L (38-126); Anion Gap 9 mmol/L (4-12); Aspartate Amino Transferase 17 U/L (14-36); Bilirubin,Total 0.4 mg/dL (0.2-1.3); Blood Urea Nitrogen 16 mg/dL (7-17); Calcium 9.4 mg/dL (8.4-10.2); Carbon Dioxide 25 mmol/L (22-30); Chloride 105 mmol/L (98-107); Estimated CRCL calculation 52 ml/min; Estimated Glomerular Filt Rate > 60; Glucose 171 mg/dL (65-110); Potassium 3.8 mmol/L (3.4-5.0); Sodium 139 mmol/L (137-145)
== END 2023-10-22 17:30 | disposition home or self-care (01) ==
PROVIDERS: Emergency Provider Emergency Medicine; PCP Nurse Practitioner Family
DX: R33.9 Retention of urine, unspecified (principal); K59.00 Constipation, unspecified; I10 Essential (primary) hypertension; E11.40 Type 2 diabetes mellitus with diabetic neuropathy, unspecified; E78.5 Hyperlipidemia, unspecified; E53.8 Deficiency of other specified B group vitamins; E55.9 Vitamin D deficiency, unspecified; K21.9 Gastro-esophageal reflux disease without esophagitis; K75.81 Nonalcoholic steatohepatitis (NASH); Z90.710 Acquired absence of both cervix and uterus; Z79.84 Long term (current) use of oral hypoglycemic drugs; Z79.82 Long term (current) use of aspirin; Z79.899 Other long term (current) drug therapy; K52.89 Other specified noninfective gastroenteritis and colitis
CPT/HCPCS: 36415; 51702; 74177; 80053; 81001; 82043; 82306; 82607; 82746; 83036; 84207; 84252; 84425; 85025; 99284; Q9967

== ENCOUNTER 2023-11-05 12:08 | Emergency (ER) | payer MEDICARE, SELFPAY ==
--- NOTE | ~2023-11-05 | CT_ITS ---
CT abdomen pelvis w con Ordering provider: Armond Lugo PA-C History: 68 years Female with . constipation x 1 week . Comparison: October 22, 2023 Technique: CT abdomen and pelvis with IV and without oral contrast. Automated exposure control and it erative reconstruction technique were employed. The dose-length product was 268.07 mGy-cm. 100 mL Omn ipaque 350 was given IV. Findings: VISUALIZED LOWER CHEST: Normal. UPPER ABDOMINAL ORGANS: Liver: Normal. Gallbladder: Normal. Spleen: Normal. Stomach/duodenum: Slightly thickened stomach wall. Clinical evaluation advised. Pancreas: Normal. Adrenals: Normal. Kidneys: Normal. PELVIC ORGANS: The bladder is underfilled with Worthington's catheter. BOWEL AND MESENTERY: Colon: No evidence of diverticulitis. Fecal material is seen in the rectum, sigmoid colon, descending colon and transverse colon with thickened wall of the rectum suggestive of stercoral colitis .. Norm al appendix. Small Bowel: Normal. No obstruction. Peritoneum/mesentery: No free air or free fluid. No mesenteric lymphadenopathy. RETROPERITONEUM: Mild atheromatous disease of the abdominal aorta. No retroperitoneal lymphadenopat hy. MUSCULOSKELETAL: Superficial soft tissues: The superficial soft tissues are normal. Bones: Age appropriate degenerative changes of the spine. Right hip arthroplasty. Dextroscoliosis. IMPRESSION: 1. No evidence of appendicitis, diverticulitis or intestinal obstruction. 2. Constipation.stercoral colitis Reviewed, dictated and finalized at location A.
[2023-11-05 12:12] VITALS: BP 136/88; PULSE 105; RESP 14; TEMP 36.7; O2SAT 98
--- NOTE | 2023-11-05 13:08 | PC.NURSE ---
pt has a delarosa with a leg bag upon arrival to ed. this RN drained the bag, got 150mL out, with a foul odor present. urine was clear and yellow
[2023-11-05 13:33] LABS: Basophils Percent Auto 0.3 % (0.2-1.2); Eosinophils Absolute Auto 0.1 K/mm3 (0-0.3); Eosinophils Percent Auto 0.7 % (0-4.4); Hematocrit 38.5 % (37.0-47.0); Hemoglobin 12.3 g/dL (12.0-15.0); Immature Granulocyte Absolute 0.04 K/mm3 (0.00-0.031); Immature Granulocyte Percent A 0.4 % (0-0.5); Lymphocytes Percent Auto 21.8 % (18.3-44.2); Mean Corpuscular HGB Conc 31.9 g/dl (32-36); Mean Corpuscular Hemoglobin 30.1 pg (26-34); Mean Corpuscular Volume 94.4 fl (80-100); Mean Platelet Volume 9.4 fl (7.4-10.4); Monocytes Absolute Auto 0.7 K/mm3 (0.1-0.6); Neutrophils Absolute Auto 6.7 K/mm3 (1.3-6.7); Neutrophils Percent Auto 69.8 % (45.5-73.1); Platelet Count Result 507 k/mm3 (150-375); Red Blood Count 4.08 M/mm3 (4.2-5.4); Red Cell Distribution Width 13.5 % (11.5-14.5); White Blood Count 9.7 K/mm3 (4.5-10.0)
--- NOTE | 2023-11-05 13:36 | ED.GENADULT ---
HPI - General Adult General Chief complaint: Unspecified Stated complaint: constipation Time Seen by Provider: 11/05/23 13:10 Source: patient Mode of arrival: ambulatory Limitations: no limitations History of Present Illness HPI narrative: This is a 68-year-old female with PMH of T2 dm, CARRILLO, rosacea, HLD, GERD, HTN who presents to the ED for chief complaint of constipation x1 week. She is coming [facility] via EMS. EMS reports that the skilled nursing staff have administered laxatives with no affect. Patient states that she has taken milk of magnesia and Dulcolax with no relief. She did not want an enema at the skilled nursing but does note that the enema performed in the ER last week helped for the same issue. She was given a Worthington catheter due to urinary retention last week and was felt to be due to the constipation. Patient denies nausea, vomiting, fevers, chills, GI bleeding symptoms. States she really is not having a lot of abdominal pain either. Related Data Home Medications Medication Instructions Recorded Confirmed aspirin 81 mg chewable tablet 81 mg PO DAILY 07/13/23 10/23/23 Allergies Allergy/AdvReac Type Severity Reaction Status Date / Time No Known Allergies Allergy Verified 11/05/23 12:15 Review of Systems Review of Systems: All systems as dictated in [facility] Past Medical History Medical History (Updated 11/05/23 @ 15:33 by Armond Lugo PA-C) Essential hypertension Fracture of greater trochanter of right femur Gastroesophageal reflux disease Hemorrhoids Hip fracture, intertrochanteric Hyperlipidemia, unspecified Hyponatremia CARRILLO (nonalcoholic steatohepatitis) Neuropathy Post-menopausal Rosacea, unspecified Type 2 diabetes mellitus Vitamin B12 deficiency Vitamin D deficiency Surgical History Surgical History (Updated 10/23/23 @ 13:21 by Bessie Leong APRN) History of hip surgery History of tonsillectomy History of total hysterectomy History of tubal ligation Family History Family History Sibling Patient's brother is in good health Father Family history of emphysema Mother Hypertension Social History Social History Social History: The patient lives in [place], [place]. She is a C[employer] P[employer] at [employer]. 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 She designates her daughter, Lizzy Carvajal, as her surrogate decision maker and she wishes to be a full code. 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 HEAD: Normocephalic, atraumatic. EYES: PERRLA and EOMI. ENT: Nares clear, no rhinorrhea or epistaxis. Mucous membranes moist. Oropharynx without tonsillar hypertrophy exudate or other lesions. NECK: Supple. No adenopathy or masses. CHEST: No respiratory distress. Clear to auscultation. No wheezes rales or rhonchi HEART: Regular rate and rhythm. No murmur heard. Normal peripheral pulses. ABDOMEN: Soft, nontender, nondistended, normal active bowel sounds throughout. MSK: Normal range of motion. No
[2023-11-05 13:48] LABS: Alanine Aminotransferase 11 U/L (6-35); Albumin Level 4.1 g/dL (3.5-5.1); Alkaline Phosphatase 118 U/L (38-126); Anion Gap 10 mmol/L (4-12); Aspartate Amino Transferase 17 U/L (14-36); Bilirubin,Total 0.5 mg/dL (0.2-1.3); Blood Urea Nitrogen 16 mg/dL (7-17); Calcium 8.9 mg/dL (8.4-10.2); Carbon Dioxide 27 mmol/L (22-30); Chloride 98 mmol/L (98-107); Estimated CRCL calculation 59 ml/min; Estimated Glomerular Filt Rate > 60; Glucose 143 mg/dL (65-110); Lipase 43 U/L (23-300); Potassium 4.1 mmol/L (3.4-5.0); Sodium 135 mmol/L (137-145)
[2023-11-05 19:08] LABS: Add Urine Microscopic? YES; Appearance Urine Clear (Clear); Bacteria Urine 2+ /hpf; Bilirubin Urine Negative (Negative); Blood Urine 3+ (Negative); Glucose Urine UA Trace mg/dL (Negative); Ketones Urine Negative (Negative); Leukocyte Esterase Ur 3+ LEU/UL (Negative); Mucus Urine Present /lpf; Need Manual Microscopic Reviewed; Nitrate Urine Negative (Negative); Non Pathogenic Casts 0-2; Protein Urine 2+ mg/dL (Negative); Specific Grav Ur 1.003 (1.001-1.035); Squamous Epithelial Cell Urine None Seen /hpf (Few); Urobilinogen Urine 0.2 mg/dL (<2.0); pH Urine 7.5 (5.0-9.0)
[2023-11-05 19:09] LABS: Color Urine Light Red (Yellow)
[2023-11-05 19:39] VITALS: BP 158/101; PULSE 98; RESP 16; TEMP 36.7; O2SAT 100
[2023-11-05 20:02] VITALS: BP 160/92; PULSE 99; RESP 15; O2SAT 98
== END 2023-11-05 20:13 | disposition home or self-care (01) ==
PROVIDERS: Emergency Provider Physician Assistant; PCP Nurse Practitioner Family
DX: K52.89 Other specified noninfective gastroenteritis and colitis (principal); K52.9 Noninfective gastroenteritis and colitis, unspecified; K59.00 Constipation, unspecified; I10 Essential (primary) hypertension; E11.40 Type 2 diabetes mellitus with diabetic neuropathy, unspecified; E78.5 Hyperlipidemia, unspecified; E53.8 Deficiency of other specified B group vitamins; E55.9 Vitamin D deficiency, unspecified; K21.9 Gastro-esophageal reflux disease without esophagitis; K75.81 Nonalcoholic steatohepatitis (NASH); Z90.710 Acquired absence of both cervix and uterus; Z79.82 Long term (current) use of aspirin; Z79.84 Long term (current) use of oral hypoglycemic drugs; Z79.899 Other long term (current) drug therapy
CPT/HCPCS: 36415; 74177; 80053; 81001; 83690; 85025; 87077; 87086; 87088; 87186; 99284; Q9967